=== PATIENT | male | born 1990 | race Caucasian/White ===

== ENCOUNTER 2017-12-07 15:22 | Emergency (ER) | payer SELFPAY ==
[2017-12-07 15:23] VITALS: BP 137/73; PULSE 91; RESP 16; TEMP 37.2; O2SAT 98; BMI 24.3
--- NOTE | 2017-12-07 17:27 | NURSING ---
due to past hx of Iv drug use patient request no opioids and to have opioids added to allergy list.
[2017-12-07 17:30] VITALS: BP 113/90; PULSE 72; RESP 14; O2SAT 97
--- NOTE | 2017-12-07 17:48 | CT_ITS ---
STUDY: CT ABDOMEN AND PELVIS WITHOUT CONTRAST REASON FOR EXAM: Male, 27 years old. Bilateral flank pain. RADIATION DOSAGE (If Supplied By Facility): CTDIvol = ( 6.08 ) mGy, DLP = ( 291.86 ) mGycm TECHNIQUE: Transaxial images were obtained from the dome of the diaphragm to the symphysis pubis without oral contrast, and without intravenous contrast. Sagittal and coronal images were reconstructed. Individualized dose optimization techniques were used for this CT. COMPARISON: None. FINDINGS: The visualized lung bases are unremarkable. The visualized portions of the heart are within normal limits. Please note the lack of intravenous contrast limits evaluation of solid visceral organs. Normal liver. Normal gallbladder and extrahepatic biliary system. Normal spleen. Normal pancreas. Normal bilateral adrenal glands. Normal right kidney. Normal left kidney. Normal visualized stomach. Normal small intestine. There are diverticula throughout the sigmoid colon. The appendix is visualized and appears normal. Normal abdominal aorta. Normal inferior vena cava. Normal retroperitoneum. Normal urinary bladder. Normal abdominal wall. There is a left posterolateral ninth rib fracture associated with bony bridging suggesting healing. CT/Abdomen/Pelvis without Cont IMPRESSION: Healing left ninth posterolateral rib fracture. Colonic diverticulosis. Electronically Signed: Tiffanie Corbett MD at 18:57 EDT Tel , Service support ,
[2017-12-07 18:04] LABS: Absolute Lymphocyte Count 1.33 X10^3/ul (0.83-4.51); Absolute Neutrophil Count 5.7 X10^3/uL (2.0-7.7); Basophil# 0.02 X10^3/uL; Basophil% 0.2 % (0-1); Eosinophil# 0.08 X10^3/uL; Hematocrit 42.1 % (40-54); Hemoglobin 14.1 g/dl (13.0-16.5); Lymphocyte # 1.33 X10^3/ul (4.0); Lymphocyte % 16.1 % (19-41); Mean Corp Hgb Conc 33.5 g/gl (32-36); Mean Corpuscular Hgb 29.4 pg (27.0-32.0); Mean Corpuscular Volume 87.7 fL (80-94); Mean Platelet Vol. 12.6 fl (6.2-12.0); Monocyte# 1.11 X10^3/uL; Monocyte% 13.4 % (0-10); Neutrophil # 5.71 X10^3/uL (2.7-7.7); Neutrophil % 69.1 % (47-70); POSITIVE COUNT NO; POSITIVE DIFFERENTIAL NO; POSITIVE MORPHOLOGY NO; Platelet Count 128 K/mm3 (150-450); RBC Distribution Width CV 13.5 % (11.6-14.6); RBC Distribution Width SD 43.1 fl (35.1-43.9); White Blood Count 8.3 K/mm3 (4.4-11.0)
[2017-12-07] MEDS: 0.9% Normal Saline 1,000 ML 1000 ML IV (18:18)
[2017-12-07 18:19] LABS: Anion Gap 9 (5-15); BUN 11 mg/dL (7-18); BUN/Creat Ratio 13.8 RATIO (10-20); Calcium,Total 9.5 mg/dL (8.5-10.1); Chloride 99 mmol/L (98-107); EST Glomerular Filtration Rate 122 mL/min (>60); Est Glom Filt Rate - Afr Amer 147 mL/min (>60); Estimated Creatinine Clearance 136.24 ml/min; Glucose 95 mg/dL (74-106); Potassium 4.2 mmol/L (3.5-5.1); Sodium Level 136 mmol/L (136-145)
[2017-12-07] MEDS: Ketorolac 30 MG/ML Syringe IV (18:39)
[2017-12-07 19:04] VITALS: PULSE 63; RESP 14; O2SAT 98
[2017-12-07 19:49] LABS: Bacteria 0 SEEN /hpf (None Seen); Red Blood Cells-Urine 0 SEEN /hpf (0-5); Squamous Epithelial Cells - UA 0 SEEN /hpf (0-5)
[2017-12-07 19:52] LABS: Color, Urine Amber (Yellow); Glucose, Dipstick Normal (Normal); Leukocyte Esterase-Dipstick 25 /ul (Negative); Nitrite-Dipstick Positive (Negative); Occult Blood-Urine Negative /ul (Negative); Protein-Dipstick 30 mg/dl (Negative); Specific Gravity, Urine 1.025 (1.002-1.030); Urine Clarity Sl. Cloudy (Clear); Urine Urobilinogen 4 mg/dl (Normal)
[2017-12-07 20:00] LABS: Ketone-Dipstick 150 mg/dl (Negative); Urine Bilirubin Dipstick 1 mg/dL (Negative)
--- NOTE | 2017-12-07 20:03 | ED.RN ---
lab called with critical lab results. urine ketones 150. Dr. Mathew made aware no new orders at this time
[2017-12-07 20:05] LABS: Mucous, Urine 4+ /hpf (<or=2+); White Blood Cells 0-5 SEEN /hpf (0-5)
--- NOTE | 2017-12-07 21:01 | ED.VISSUMM ---
- ER Visit Summary Date of Service: 12/07/17 Chief Complaint: Flank pain History of Present Illness: The patient is a 27 M with bilateral flank pain that started today. He states he had some blood in his urine this morning. He states he really has not urinated the rest of the day today. Patient denies history of kidney stones. He denies dysuria. Physical Examination: Vital signs unremarkable. Patient sitting upright in bed no acute distress. Heart is regular rate and rhythm. Lung sounds are clear. Abdomen is soft with mild diffuse tenderness. There is no guarding or rebound. Active bowel sounds noted throughout. Back exam reveals no CVA tenderness. Test Results: CBC is significant only for platelet count of 120,000. Chemistry studies normal. Urinalysis is positive for nitrites with 0-5 whites and 0-[address] flank shows healing left ninth rib fracture. Colonic diverticulosis is noted. Emergency Department Course and Treatment: Patient was given Toradol, Zofran, and IV fluids here. On repeat evaluation pain is improved. Test results were discussed with him. Urine will be sent for culture but because he is not having symptoms we will not treat at this time. I will also add gonorrhea chlamydia testing to the urine. Patient will be given Toradol at home for pain. Treatment Plan: [] Disposition: Discharge Impression: Abdominal pain, uncertain etiology This note was generated with [employer] dictation software. It may contain incorrect words, spelling, and punctuation that were not noted in review of the chart prior to signing ED Disposition - Plan for ED Patient: Chief Complaint: Flank Pain Referrals: Care Physician,No Primary [Primary Care Provider] -
[2017-12-07 21:02] VITALS: PULSE 68; RESP 16; O2SAT 98
--- NOTE | 2017-12-07 21:04 | ED.DEP ---
ED Disposition - Plan for ED Patient: Disposition: Home or Assisted Living Chief Complaint: Flank Pain Instructions: ED Abdominal Pain Unkn Cause Male Prescriptions: Ketorolac [Toradol] 10 mg PO Q6H PRN #14 tablet PRN Reason: Pain Referrals: Carlos Garcia MD [STAFF PHYSICIAN] - As Needed
[2017-12-07 21:16] VITALS: PULSE 91; RESP 16; O2SAT 98
[2017-12-07 23:27] LABS: Chlamydia Trachomatis by PCR Negative (Negative); Neisserai gonorrhoeae by PCR Negative (Negative); Probe Check PASS; Sample Adequacy Control PASS; Specimen Processing Control PASS
== END 2017-12-07 21:17 | disposition home or self-care (01) ==
PROVIDERS: Emergency Provider Emergency Medicine
DX: R10.9 Unspecified abdominal pain (principal); R31.9 Hematuria, unspecified; K57.30 Diverticulosis of large intestine without perforation or abscess without bleeding; Z86.19 Personal history of other infectious and parasitic diseases; Z72.0 Tobacco use
CPT/HCPCS: 74176; 80048; 81001; 85025; 87086; 87088; 87491; 87591; 96361; 96374; 99285; J7030; A4216

== ENCOUNTER 2018-10-26 19:28 | Emergency (ER) | payer MEDICAID, SELFPAY ==
[2018-10-26 19:30] VITALS: BP 140/80; PULSE 107; RESP 15; TEMP 37.1; O2SAT 98; BMI 23.0
--- NOTE | 2018-10-26 19:43 | ED.VISSUMM ---
- ER Visit Summary Date of Service: 10/26/18 Chief Complaint: Scalp abscess, methamphetamine abuse History of Present Illness: The patient is a 28 M who is here because he has an abscess on his scalp. He states that he shaved his head with a razor 2 days ago when he had a bump behind his ear. It is not red. He denies any drainage or fevers. He is also inquiring about detox. He states he relapsed on methamphetamine 2 days ago. He has used twice this week. He is a former heroin addict and did detox 2 years ago with [facility] here. Physical Examination: Vital signs reviewed. Head exam reveals an area of cellulitis of the left lower scalp. There is no fluctuance. No abscess is seen. The rest of his exam is unremarkable Test Results: None performed Emergency Department Course and Treatment: The patient looks very comfortable and I do not feel he needs inpatient detox at this point. I will give him follow-up information with [facility] and with [facility]. I will give him Bactrim for this area of cellulitis on the scalp. He will keep this area clean and dry. I do not feel labs are necessary as his vital signs are unremarkable. I will give him a PCP to follow-up with Treatment Plan: [] Disposition: Discharge Impression: Scalp cellulitis, methamphetamine abuse This note was generated with [employer] dictation software. It may contain incorrect words, spelling, and punctuation that were not noted in review of the chart prior to signing ED Disposition - Plan for ED Patient: Referrals: Care Physician,No Primary [Primary Care Provider] -
--- NOTE | 2018-10-26 19:45 | ED.DEP ---
ED Disposition - Plan for ED Patient: Disposition: Home or Assisted Living Instructions: Cellulitis Prescriptions: Smz/Tmp Ds [Bactrim Ds] 1 tab PO BID #14 tab Prescription Printed Referrals: Care Physician,No Primary [Primary Care Provider] - Oneil Persaud DO [STAFF PHYSICIAN] -
[2018-10-26] MEDS: Smz/Tmp Ds Tablet 1 TABLET PO (19:51)
== END 2018-10-26 20:06 | disposition home or self-care (01) ==
LOC: ED 19:59
PROVIDERS: Emergency Provider Emergency Medicine
DX: L03.811 Cellulitis of head [any part, except face] (principal); F15.10 Other stimulant abuse, uncomplicated; Z86.19 Personal history of other infectious and parasitic diseases; Z87.898 Personal history of other specified conditions
CPT/HCPCS: 99283

== ENCOUNTER 2018-12-31 22:16 | Emergency (ER) | payer MEDICAID, SELFPAY ==
[2018-12-31 22:17] VITALS: BP 129/89; PULSE 89; RESP 14; TEMP 36.7; O2SAT 98; BMI 19.7
--- NOTE | 2018-12-31 22:55 | ED.DCSUM_ITS ---
- ER Visit Summary Date of Service: 12/31/18 Chief Complaint: Blood shot eyes History of Present Illness: The patient is a 28 M past medical history of drug abuse. 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 And he thought he got into may be some poison daniela. He was concerned he was in get a reaction so he went inside when he was done and washed his face off with Cyn soap. He believes he may got some of his eyes. And has been rubbing his eyes since that time. Started yesterday. He denies any trauma to his face or eyes. Denies any headache. He is on no blood thinners. He does not wear glasses or contacts. Physical Examination: Young male no acute distress. Vital signs are stable and afebrile. HEENT exam is mild swelling to both upper and lower lids bilaterally. He has subconjunctival hemorrhages to both eyes. They are watering. There is no purulent discharge. There is no orbital cellulitis or proptosis. Extraocular motions are intact. There is no preauricular lymphadenopathy. There is no facial swelling otherwise. Lungs are clear. Heart is regular rhythm no murmur. Abdomen is soft. Patient is moving all 4 extremities. Neurologically is awake and alert with no focal motor deficits. Test Results: None Emergency Department Course and Treatment: Slit-lamp examination will be performed with tetracaine and fluoroscein applied to both eyes. Patient had bilateral subconjunctival hemorrhages. His corneas appeared to be somewhat hazy. And he had fluoroscein uptake consistent with bilateral corneal abrasions. I again question the patient and he told me the only thing he got in contact with his eyes was done so. He then rubbed him vigorously for the last 24 hours. He denies any contact lens use or glasses or any prior eye surgery. He denies any trauma otherwise. Nurse will irrigate his eyes out with saline. He will be given tetracaine for 1 day for pain. Prescription for bacitracin ointment. Treatment Plan: Sunglasses to prevent glare. Bacitracin ophthalmic ointment. Follow-up with senior sales administrator on Wednesday. Disposition: Discharge Impression: Subconjunctival hemorrhages bilaterally. Bilateral chemical conjunctivitis Bilateral corneal abrasions self-inflicted History of drug abuse This note was generated with Dragon dictation software. It may contain incorrect words, spelling, and punctuation that were not noted in review of the chart prior to signing ED Disposition - Plan for ED Patient: Referrals: Care Physician,No Primary [NON-STAFF] -
[2018-12-31] MEDS: Tetracaine 0.5% Ophthalmic Bottle 1 DRP EACH EYE (23:27)
[2018-12-31] MEDS: Fluorescein 1 MG STRIP 1 STRIP EACH EYE (23:27)
--- NOTE | 2018-12-31 23:29 | ED.DEP ---
ED Disposition - Plan for ED Patient: Disposition: Home or Assisted Living Instructions: Conjunctivitis Caused by Irritation, ED Corneal Abrasion Prescriptions: Bacitracin Opthalmic 1 applic EACH EYE Q4H PRN PRN 5 Days #1 opth.tube PRN Reason: conjunctivitis Prescription Printed Referrals: Mateusz Perdomo MD [STAFF PHYSICIAN] - As soon as possible Additional Instructions: Follow-up with the eye doctors office on Wednesday they will see you in their office on that day. You need to call make an appointment. Call them first thing Wednesday morning. Use the tetracaine eyedrops for pain relief for the next 24 hours. You cannot use them more than 1 day because they retard healing. Throw them away on Wednesday night. Motrin and tylenol for pain. Sun glasses to prevent glare Eye ointment bacitracin to each eye 4 times a day till gone.
== END 2018-12-31 23:50 | disposition home or self-care (01) ==
PROVIDERS: Emergency Provider Emergency Medicine; Family Provider Family Medicine; PCP Family Medicine
DX: H11.33 Conjunctival hemorrhage, bilateral (principal); H10.213 Acute toxic conjunctivitis, bilateral; S05.02XA Injury of conjunctiva and corneal abrasion without foreign body, left eye, initial encounter; S05.01XA Injury of conjunctiva and corneal abrasion without foreign body, right eye, initial encounter; X58.XXXA Exposure to other specified factors, initial encounter; Y93.9 Activity, unspecified; Y92.9 Unspecified place or not applicable; F19.10 Other psychoactive substance abuse, uncomplicated; Z72.0 Tobacco use
CPT/HCPCS: 99284; J7030

== ENCOUNTER 2019-01-06 14:43 | Emergency (ER) | payer MEDICAID, SELFPAY ==
[2019-01-06] VITALS (7 sets, daily range): BP systolic 106–146; BP diastolic 67–88; PULSE 88–98; RESP 12–20; TEMP 36.6; O2SAT 82–100; BMI 19.8
--- NOTE | 2019-01-06 15:00 | ED.VIS.GEN ---
History of Present Illness Chief Complaint: Overdose Informant: Patient Onset: Today Context: Sudden Onset Timing: Continuous Current Severity: Moderate Maximum Severity: Severe Narrative: The patient presents to the emergency department after accidental overdose. Patient states that he snorted heroin today. He was acting erratically and was more lethargic. Squad was called. On squad arrival, the patient was placed on nasal cannula. He was listless, but would respond appropriately. He answers questions. He denies being suicidal homicidal. The patient states he was recently incarcerated and has been out of group home for about a month. He states that he uses heroin daily. He has been through detox before. He denies any other current symptoms. Prior similar symptoms: Yes Recent Illness/Hospitalization: No Past Medical History - Allergies and Home Meds Allergies/Adverse Reactions: Allergies No Known Allergies Allergy (Verified 01/06/19 14:49) Primary Care Physician: Brady Atwood MD [Primary Care Provider] - Prior records reviewed: Yes Past Medical History: - - Drug abuse Surgical History: no surgical history Smoking Status: Current every day smoker - Family History Maternal Family History: Reports: No pertinent history Paternal Family History: Reports: No pertinent history Review of Systems General: Denies: Chills, Fever, Sweats Eyes: Denies: Visual changes - bilaterally, Diplopia ENT: Denies: Rhinorrhea, Sore throat Cardiovascular: Denies: Chest pain, Palpitations Respiratory: Denies: Dyspnea, Cough, Dyspnea on exertion Gastrointestinal: Denies: Abdominal pain, Nausea, Vomiting, Diarrhea, Melena, Hematochezia Genitourinary: Denies: Dysuria, Hematuria, Frequency Musculoskeletal: Denies: Back pain, Extremity Pain Skin: Denies: Rash, Wounds Neurological: Denies: Headache, Weakness, Numbness Physical Exam Vital Signs/Narrative: Vital Signs Temp Pulse Resp BP Pulse Ox 01/06/19 14:49 12 97 01/06/19 14:43 97.8 F 98 16 121/77 H 82 Inital Vital Signs reviewed: Yes General: Well nourished, Well developed, No Acute Distress Head: Normocephalic, Atraumatic Eyes: Perrl, EOMI ENT: Moist mucous membranes, No rhinorrhea Neck: Supple, Nontender Cardiovascular: Regular rate, Regular rhythm, No murmurs Respiratory: No distress, CTA bilaterally, Chest nontender Abdomen: Soft, Nontender, Nondistended, Normal bowel sounds Back: Nontender, Normal Inspection Extremities: Nontender, No edema Skin: Normal color, No rash Neurological: Alert, Oriented x3, Cranial nerves II-XII grossly intact, Normal Strength, Normal Sensation Psychological: Normal affect, Normal Mood Diagnostic/Tx/Re-eval - Medical Decision Making The patient presents after accidental opiate overdose. He is awake. Answers questions appropriately. He did not receive any Narcan. The patient was interested in outpatient detox referrals. I did ask social work to see the patient. We were attempting to get the patient's detox referral, but he stated that he did not want to stay anymore. He is not requiring any supplemental oxygen. He was given outpatient resources for follow-up. He will be discharged home. Impression Accidental opioid overdose ED Disposition - Plan for ED Patient: Disposition: Home or Assisted Living Instructions: OVERDOSE, Opiate Referrals: Brady Atwood MD [Primary Care Provider] -
[2019-01-06 15:50] LABS: Absolute Lymphocyte Count 1.64 X10^3/uL (0.83-4.51); Absolute Neutrophil Count 7.8 X10^3/uL (2.0-7.7); Basophil# 0.07 X10^3/uL; Basophil% 0.7 % (0-1); Eosinophil# 0.16 X10^3/uL; Eosinophils% 1.5 % (0-5); Hemoglobin 14.4 g/dL (13.0-16.5); Lymphocyte # 1.64 X10^3/ul (4.0); Lymphocyte % 15.4 % (19-41); Mean Corpuscular Hgb 28.5 pg (27.0-32.0); Mean Corpuscular Volume 88.9 fL (80-94); Mean Platelet Vol. 10.7 fl (6.2-12.0); Monocyte# 0.94 X10^3/uL; Monocyte% 8.8 % (0-10); NRBC Flagged by Analyzer 0 % (0-5); Neutrophil # 7.79 X10^3/uL (2.7-7.7); Neutrophil % 73.1 % (47-70); Platelet Count 392 K/mm3 (150-450); RBC Distribution Width CV 13.9 % (11.6-14.6); RBC Distribution Width SD 44.9 fl (35.1-43.9); Red Blood Count 5.06 M/mm3 (4.6-6.2); White Blood Count 10.7 K/mm3 (4.4-11.0)
[2019-01-06 16:03] LABS: ALB/GLOB Ratio 1.1 RATIO (0.9-2.4); AST(SGOT) 106 U/L (15-37); Alanine Aminotransfer ALT/SGPT 197 U/L (16-61); Alkaline Phosphatase 105 U/L (45-117); Anion Gap 8 (5-15); BUN 8 mg/dL (7-18); BUN/Creat Ratio 9.1 RATIO (10-20); Calcium,Total 8.7 mg/dL (8.5-10.1); Chloride 104 mmol/L (98-107); Creatinine, Serum 0.88 mg/dL (0.70-1.30); EST Glomerular Filtration Rate 108 mL/min (>60); Est Glom Filt Rate - Afr Amer 131 mL/min (>60); Estimated Creatinine Clearance 105.56 ml/min; Globulin 3.5 g/dL (2.2-4.2); Glucose 117 mg/dL (74-106); Potassium 4.3 mmol/L (3.5-5.1); Protein, Total 7.5 g/dL (6.4-8.2); Sodium Level 141 mmol/L (136-145)
--- NOTE | 2019-01-06 16:30 | CM.ED ---
SOCIAL WORK ASSESSMENT INFORMANT: DR. MCCALL REASON FOR REFERRAL: SUBSTANCE ABUSE/PATIENT WANTING DETOX CHIEF COMPLIANT: PATIENT BROUGHT IN BY EMS D/T ACTING ERRATICALLY. PATIENT ADMITTED TO SNORTING HEROIN WITH [facility] OR [facility]. PATIENT STATES HAD BEEN ON VIVITROL BACK IN SEPTEMBER AND RELAPSED. PATIENT STATES WAS TRYING TO QUIT USING ON OWN AND HAD CALLED AROUND TO GET IN SOMEWHERE FOR DETOX. PATIENT REPORTS HAD NOT USED FOR 3 DAYS. PATIENT STATES TODAY WAS NOT FEELING BETTER AND WITHDRAWAL SYMPTOMS BECAME WORSE. PATIENT STATES HE OBTAINED HEROIN AND USED BY SNORTING AROUND 1PM TODAY. LIVING SITUATION: PATIENT STATES IS CURRENTLY HOMELESS. LEGAL ISSUES: PATIENT DENIES ANY LEGAL ISSUES CURRENTLY. EMPLOYMENT STATUS: UNEMPLOYED MENTAL HEALTH TREATMENT/HISTORY: PATIENT DENIES ANY MENTAL HEALTH HISTORY. PATIENT DENIES ANY SUICIDAL OR HOMICIDAL IDEATIONS. SUBSTANCE ABUSE HISTORY: PATIENT REPORTS HAS BEEN USING HEROIN SINCE THE AGE OF 16 OFF AND ON. PATIENT STATES USES ABOUT 1/2 GRAM DAILY, OR MUCH I CAN AFFORD. LAST USE WAS AT 1PM TODAY AFTER ABSTAINING FOR 3 DAYS. ASSESSMENT: MET WITH PATIENT IN ROOM. INTRODUCED ROLE AND REASON FOR REFERRAL. PATIENT STATES IS WANTING TREATMENT. PATIENT REPORTS WAS ON VIVITROL BACK IN SEPTEMBER WHEN HE WAS IN RETIREMENT. ONCE RELEASED HAD ISSUES WITH GETTING BACK ON VIVITROL. PATIENT HOPING TO BE PLACED INPATIENT FOR DETOX. THIS WORKER TO ASSIST WITH PLACEMENT FOR DETOX. STAFF AND DR. MCCALL UPDATED ON PLAN. INTERVENTIONS: SOCIAL SERVICE ASSESSMENT REFERRAL FOR INPATIENT DETOX BRIAN MURPHY MSW, SYSTEMS OPERATOR.
[2019-01-06 17:15] LABS: Alcohol, Blood (Medical)-Serum < 3.0 mg/dL
--- NOTE | 2019-01-06 17:41 | CM.ED ---
SOCIAL WORK MET WITH PATIENT IN ROOM. PATIENT REPORTS CALLED [facility] AND THEY REPORTED WILL HAVE BED FOR PATIENT TOMORROW. PATIENT STATES HAS EYE APPOINTMENT TOMORROW MORNING AND PLANS TO GO TO [place] AFTER APPOINTMENT. PATIENT THANKED THIS WORKER FOR ASSISTANCE. NURSING UPDATED. BRIAN MURPHY, CURTAIN [employer]ER BLINDSTITCH, AUTOMATIC QUILLING MACHINE OPERATOR.
== END 2019-01-06 17:49 | disposition home or self-care (01) ==
PROVIDERS: Emergency Provider Emergency Medicine; Family Provider Family Medicine; PCP Family Medicine
DX: T40.2X1A Poisoning by other opioids, accidental (unintentional), initial encounter (principal); Y92.9 Unspecified place or not applicable; F17.200 Nicotine dependence, unspecified, uncomplicated
CPT/HCPCS: 36415; 80053; 80320; 85025; 99285; A4216; G0480

== ENCOUNTER 2019-01-14 19:26 | Emergency (ER) | payer MEDICAID, SELFPAY ==
[2019-01-06 14:43] VITALS: BMI 19.8
[2019-01-14 19:27] VITALS: BP 167/148; PULSE 111; RESP 14; TEMP 36.4; O2SAT 96; BMI 19.3
--- NOTE | 2019-01-14 20:39 | ED.RN ---
PT RESTLESS, CONTORTING ALL EXTREMITIES, SINGING, RAMBLING NON-SENSICAL SPEECH. PT COOPERATIVE AT THIS TIME, REQUIRES FREQUENT REDIRECTION.
[2019-01-14] MEDS: LORazepam 2 MG/ML Syringe IM (20:56)
[2019-01-14 20:58] VITALS: BP 157/87; PULSE 112; RESP 20; O2SAT 98
[2019-01-14 21:02] LABS: Absolute Lymphocyte Count 2.71 X10^3/uL (0.83-4.51); Absolute Neutrophil Count 5.8 X10^3/uL (2.0-7.7); Basophil# 0.12 X10^3/uL; Basophil% 1.2 % (0-1); Eosinophil# 0.18 X10^3/uL; Eosinophils% 1.8 % (0-5); Hematocrit 43.3 % (40-54); Hemoglobin 14.3 g/dL (13.0-16.5); Lymphocyte # 2.71 X10^3/ul (4.0); Lymphocyte % 26.6 % (19-41); Mean Corpuscular Hgb 28.8 pg (27.0-32.0); Mean Corpuscular Volume 87.3 fL (80-94); Mean Platelet Vol. 10.2 fl (6.2-12.0); Monocyte# 1.37 X10^3/uL; Monocyte% 13.4 % (0-10); NRBC Flagged by Analyzer 0 % (0-5); Neutrophil # 5.79 X10^3/uL (2.7-7.7); Neutrophil % 56.7 % (47-70); Platelet Count 405 K/mm3 (150-450); RBC Distribution Width CV 13.7 % (11.6-14.6); RBC Distribution Width SD 43.5 fl (35.1-43.9); Red Blood Count 4.96 M/mm3 (4.6-6.2); White Blood Count 10.2 K/mm3 (4.4-11.0)
[2019-01-14 21:14] LABS: Anion Gap 6 (5-15); BUN 16 mg/dL (7-18); BUN/Creat Ratio 16.3 RATIO (10-20); Calcium,Total 9.3 mg/dL (8.5-10.1); Chloride 106 mmol/L (98-107); Creatinine, Serum 0.98 mg/dL (0.70-1.30); EST Glomerular Filtration Rate 95 mL/min (>60); Est Glom Filt Rate - Afr Amer 115 mL/min (>60); Estimated Creatinine Clearance 92.29 ml/min; Glucose 89 mg/dL (74-106); Potassium 4.1 mmol/L (3.5-5.1); Sodium Level 142 mmol/L (136-145)
[2019-01-14 21:26] LABS: Alcohol, Blood (Medical)-Serum < 3.0 mg/dL
[2019-01-14] MEDS: Ziprasidone IM 20 MG/ML VIAL IM (21:57)
--- NOTE | 2019-01-14 22:00 | ED.RN ---
PT CONTINUES WITH ERRATIC, AGITATED BEHAVIOR. PT STATES MAN, I JUST CAN'T COME DOWN OFF THIS SHIT'. CONTINUES TO COOPERATE WITH CARE, ABLE TO REDIRECT BACK TO BED.
[2019-01-14 23:36] LABS: Amphetamine Urine VISTA POSITIVE (<1000 ng/mL); Barbiturate Urine VISTA NEGATIVE (< 200 ng/mL); Benzodiazepine Urine VISTA NEGATIVE (< 200 ng/mL); Cocaine Urine VISTA POSITIVE (< 300 ng/mL); Ecstacy Urine VISTA POSITIVE (< 500 ng/mL); Methadone Urine VISTA NEGATIVE (< 300 ng/mL); PCP Urine VISTA NEGATIVE (< 25 ng/mL); THC Urine VISTA NEGATIVE (< 50 ng/mL); Vista UDS pH Range 6
[2019-01-14 23:38] VITALS: BP 98/66; PULSE 100; RESP 14; O2SAT 96
--- NOTE | 2019-01-14 23:59 | ED.DCSUM_ITS ---
- ER Visit Summary Date of Service: 01/14/19 Chief Complaint: Abnormal behavior History of Present Illness: The patient is a 28 M who presents with abnormal behavior that was noticed today. Patient was found by police acting abnormally. Patient was brought to the emergency department for further evaluation. Patient admits to using heroin and methamphetamine. Patient denies any suicidal or homicidal ideations. Patient is a poor historian. Patient denies any chest pain or shortness of breath. Patient denies any nausea or vomiting. Patient denies any fevers or chills. Physical Examination: Vital signs are stable except for slightly elevated blood pressure 167/148 and a mild tachycardia of 111. Patient is afebrile. Patient is in no acute distress. Patient is awake, alert, and answers questions appropriately however he does appear to have some external stimulation. Patient denies any suicidal or homicidal ideations. Cranial nerves II through XII are intact. There are no focal motor or sensory deficits noted. Skin is warm and dry. There is some superficial abrasions on his scalp but there is no active bleeding noted. Oral mucosa is pink and moist. Neck is supple. Trachea is midline. There is no JVD noted. Heart was regular rate and rhythm. Lungs are clear and equal bilaterally. Abdomen is soft and nontender. Test Results: CBC and basic metabolic profile within normal limits. Serum alcohol level was normal. Urine tox screen was positive for methamphetamines, amphetamines, and cocaine. Emergency Department Course and Treatment: Patient was given a dose of Ativan here. Patient was still agitated. Patient was given a dose of Geodon. Patient is resting comfortably on reevaluation. Patient was instructed to stop using methamphetamine and heroin. Patient does not want to help at this time for drug rehab. Patient will be observed in the emergency department until he is clinically sober. Patient was instructed to follow-up with his primary care physician in 5 to 7 days. Disposition: Discharge home Impression: Substance abuse This note was generated with [employer] dictation software. It may contain incorrect words, spelling, and punctuation that were not noted in review of the chart prior to signing ED Disposition - Plan for ED Patient: Disposition: Home or Assisted Living Diagnosis: Substance abuse Instructions: Drug Abuse Referrals: Brady Atwood MD [Primary Care Provider] - 5-7 Days
[2019-01-15 00:40] VITALS: BP 101/74; PULSE 76; RESP 13; O2SAT 100
[2019-01-15 01:11] VITALS: BP 97/70; PULSE 69; RESP 14; O2SAT 100
--- NOTE | 2019-01-15 01:12 | ED.RN ---
PATIENT IS SLEEPING SOUNDLY CURRENTLY. VITALS ARE STABLE.
[2019-01-15 02:11] VITALS: BP 147/93; PULSE 78; RESP 20; O2SAT 100
--- NOTE | 2019-01-15 02:12 | ED.RN ---
PATIENT'S DAD IS UNABLE TO COME AND GET THE PATIENT, BUT HE SAID HE COULD COME HOME IN A TAXI. PATIENT WAS GIVEN A SANDWICH AND A DRINK TO SEE IF HE COULD STAY AWAKE TO TAKE THE TAXI. HE IS ANSWERING APPROPRIATELY, EATING AND GETTING HIMSELF DRESSED TO GO HOME.
--- NOTE | 2019-01-15 02:25 | ED.RN ---
THIS NURSE WALKED PATIENT OUT TO THE CAB TO GO HOME.
== END 2019-01-15 02:25 | disposition home or self-care (01) ==
PROVIDERS: Emergency Medicine; Emergency Provider Emergency Medicine; Family Provider Family Medicine; PCP Family Medicine
DX: F15.10 Other stimulant abuse, uncomplicated (principal); F14.10 Cocaine abuse, uncomplicated; F11.90 Opioid use, unspecified, uncomplicated; S00.01XA Abrasion of scalp, initial encounter; X58.XXXA Exposure to other specified factors, initial encounter; Y93.9 Activity, unspecified; Y92.9 Unspecified place or not applicable; M54.2 Cervicalgia; M54.9 Dorsalgia, unspecified; Z86.19 Personal history of other infectious and parasitic diseases; F17.200 Nicotine dependence, unspecified, uncomplicated
CPT/HCPCS: 36415; 80048; 80307; 80320; 85025; 96372; 99284; G0480; J3486

== ENCOUNTER 2019-03-01 11:52 | Emergency (ER) | payer MEDICAID, SELFPAY ==
[2019-03-01 11:52] VITALS: BP 129/82; PULSE 87; RESP 16; TEMP 36.6; O2SAT 99; BMI 22.1
[2019-03-01] MEDS: Fluorescein 1 MG STRIP 1 STRIP RIGHT EYE (12:07)
[2019-03-01] MEDS: Tetracaine 0.5% Ophthalmic Bottle 1 DRP RIGHT EYE (12:07)
--- NOTE | 2019-03-01 12:29 | ED.VISSUMM ---
- ER Visit Summary Date of Service: 03/01/19 Chief Complaint: Foreign body right eye History of Present Illness: The patient is a 28 M who got a foreign body in his right eye at work yesterday. Complains of pain and tearing. He had similar symptoms a week and a half ago and had foreign bodies removed at an eye care center. Physical Examination: Patient has 2 foreign bodies, 1 of them is at 3:00 and the other one is at 7:00. There also appears to be a central corneal abrasion. He has conjunctival injection, tearing. Extraocular motion normal. Pupils normal. Skin normal. Test Results: None indicated Emergency Department Course and Treatment: Visual acuity performed. Tetracaine applied. Fluorescein used. Patient was discussed with ophthalmology. They would like to see him in the clinic today at 215. He was given a work note. Treatment Plan: As above Disposition: Discharge Impression: Right eye foreign bodies This note was generated with [employer] dictation software. It may contain incorrect words, spelling, and punctuation that were not noted in review of the chart prior to signing ED Disposition - Plan for ED Patient: Referrals: Brady Atwood MD [Primary Care Provider] -
--- NOTE | 2019-03-01 12:30 | ED.DEP ---
ED Disposition - Plan for ED Patient: Instructions: Foreign Object in the [place] Referrals: Mateusz Perdomo MD [STAFF PHYSICIAN] -
[2019-03-01 12:39] VITALS: BP 108/74; PULSE 62; RESP 15; O2SAT 99
== END 2019-03-01 12:40 | disposition home or self-care (01) ==
PROVIDERS: Emergency Provider Emergency Medicine; Family Provider Family Medicine; PCP Family Medicine
DX: T15.01XA Foreign body in cornea, right eye, initial encounter (principal); X58.XXXA Exposure to other specified factors, initial encounter; Y93.9 Activity, unspecified; Y92.9 Unspecified place or not applicable; Z72.0 Tobacco use
CPT/HCPCS: 99283

== ENCOUNTER 2020-07-01 01:40 | Emergency (ER) | payer MEDICAID, SELFPAY ==
[2020-07-01 01:48] VITALS: BP 133/104; PULSE 127; RESP 19; TEMP 37.6; O2SAT 96; BMI 26.0
--- NOTE | 2020-07-01 02:13 | ED.DCSUM_ITS ---
History of Present Illness Chief Complaint: Mental Health Informant: Patient, Activity Therapy Teacher Narrative: Patient has been staying at a hotel with his girlfriend, there was a verbal altercation earlier between the 2 of them because according to him, his girlfriend has bipolar disorder and she was having a bad day. He states that he understands this happens with her because of her bipolar, but he loves her and stands by her, but after she was brought here to the hospital and later discharged, he was also brought at the requirement of police who then called paramedics. They said he was having involuntary movements and they were concerned about potential drug use which the patient denies although he is admitted recovering heroin addict who is also used methamphetamine in the past, but nothing recently or tonight. He states that apparently the hotel is forcing him and his girlfriend to leave, and they were doing it through the police. He states he is feeling emotional lately, and he is very hurt by the fact that the police and paramedics seem to be treating him poorly because they think I am just a junky. He denies any recent drug use or recent illness, and states that he was upset and rather agitated because of the way he and his girlfriend were being treated. He goes on to say that they asked him to get on the cot and once he did, they strapped him to it even though he thought he was cooperating. He denies any suicidal ideation, homicidal ideation, hallucinations or de lusions. He states he has had hallucinations in the past when he did methamphetamine, and he states tonight the paramedics were making fun of him because of that event. - Past Medical History (1) Asthma Status: Chronic Past Medical History - Allergies and Home Meds Allergies/Adverse Reactions: Allergies No Known Allergies Allergy (Verified 01/06/19 14:49) Primary Care Physician: Counseling[facility]Center [GROUP OF PHYSICIANS] - As Needed Brady Atwood MD [Primary Care Provider] - As Needed Surgical History: no surgical history Lives: Homeless Smoking Status: Current every day smoker Drugs: - - Drug use in past see HPI - Family History Maternal Family History: Reports: No pertinent history Paternal Family History: Reports: No pertinent history Review of Systems General: Denies: Chills, Fever, Sweats Eyes: Denies: Visual changes - bilaterally, Diplopia ENT: Denies: Rhinorrhea, Sore throat Cardiovascular: Denies: Chest pain, Palpitations Respiratory: Denies: Dyspnea, Cough, Dyspnea on exertion Gastrointestinal: Denies: Abdominal pain, Nausea, Vomiting, Diarrhea, Melena, H ematochezia Genitourinary: Denies: Dysuria, Hematuria, Frequency Musculoskeletal: Denies: Back pain, Extremity Pain Skin: Denies: Rash, Wounds Neurological: Denies: Headache, Weakness, Numbness Psych: Reports: Depression, Anxiety. Denies: Suicidal thoughts, Suicidal ideations Physical Exam Vital Signs/Narrative: Vital Signs Temp Pulse Resp BP Pulse Ox 07/01/20 01:48 99.6 F H 127 H 19 H 133/104 H 96 Inital Vital Signs reviewed: Yes General: Well nourished, Well developed, No Acute Distress Head: Normocephalic, Atraumatic Eyes: Perrl, EOMI ENT: Moist mucous membranes, No rhinorrhea Neck: Supple, Nontender Cardiovascular: Regular rate, Regular rhythm, No murmurs Respiratory: No distress, CTA bilaterally, Chest nontender Abdomen: Soft, Nontender, Nondistended, Normal bowel sounds Back: Nontender, Normal Inspection Extremities: Nontender, No edema Skin: Normal color, No rash Neurological: Alert, Oriented x3, Cranial nerves II-XII grossly intact, Normal Strength, Normal Sensation, Normal Gait Psychological: Depressed, Tearful, - - Patient very insightful and not suicidal. No delusions or hallucinations objectively. A little fidgety, but no involuntary movements. Diagnostic/Tx/Re-eval - Medical Decision Making Repeat patient's heart rate is 112. I do not think he has any acute medical issue on my medical screening exam, nor do I think he needs any formal psychiatric evaluation tonight. He spent quite a while talking to me about how he feels like he was mistreated tonight and feels very poorly about the situation, he is regretful about the fact that he is admittedly a drug addict, and states that it is a daily struggle for him to continue to get over this lyndsey that is addiction, and he has continued to press on, telling me that he has been staying clear of drugs. Patient is discharged in stable condition. ED Disposition - Plan for ED Patient: Disposition: Home or Assisted Living Diagnosis: Acute reaction to situational stress Instructions: ED Depression Referrals: Brady Atwood MD [Primary Care Provider] - As Needed Counseling,Center [GROUP OF PHYSICIANS] - As Needed
[2020-07-01 02:30] VITALS: BP 139/85; PULSE 112; RESP 20; TEMP 36.4; O2SAT 95
[2020-07-01 03:02] VITALS: PULSE 98; RESP 18
== END 2020-07-01 03:04 | disposition home or self-care (01) ==
LOC: ED 02:22
PROVIDERS: Emergency Provider Emergency Medicine
DX: F43.0 Acute stress reaction (principal); F17.200 Nicotine dependence, unspecified, uncomplicated
CPT/HCPCS: 99282

== ENCOUNTER 2020-10-25 23:12 | Inpatient (IN) | payer MEDICAID, SELFPAY ==
[2020-10-25 23:12] VITALS: BP 120/76; PULSE 94; RESP 16; TEMP 36.1; O2SAT 97; BMI 23.6
--- NOTE | 2020-10-25 23:20 | EDS_ITS ---
HPI History of Present Illness Chief Complaint: Substance Abuse Narrative Narrative: Patient presenting for opioid detox. He states that he injects fentanyl. He states he also did black tar heroin several days ago. Patient also admits to methamphetamine use. Patient states currently his last use was yesterday and that he is having symptoms of restless legs and nausea. Patient denies any other significant medical history. He denies EtOH use. [facility] Medical History Hepatitis C Home Medications NK 10/26/20 [History Last Taken Unknown] Allergy/AdvReac Type Severity Reaction Status Date / Time No Known Allergies Allergy Verified 10/25/20 23:14 Family History Other Cancer Surgical History History of tonsillectomy Social History Smoking Status: Current every day smoker tobacco type: cigarettes ROS ROS ED Constitutional Constitutional ED: Denies chills, fever(s) or sweats Eyes Eyes: Denies blurry vision or diplopia ENT ENT ED: Denies rhinorrhea or sore throat Cardiovascular Cardiovascular: Denies chest pain or palpitations Respiratory/Chest Respiratory/Chest: Denies cough or dyspnea Gastrointestinal Gastrointestinal: Reports nausea; Denies abdominal pain, diarrhea or vomiting Genitourinary Genitourinary ED: Denies dysuria or urinary frequency Musculoskeletal Musculoskeletal: Denies arthralgias, myalgias or neck pain Integumentary Denies abscess or rash Neurologic Neurologic: Denies headache(s) or paresthesias EXAM Physical Exam Const Vital Signs: 10/25/20 23:12 10/26/20 01:56 Temperature 97 F L 97.9 F Temperature Source Temporal Temporal Pulse Rate 94 73 Respiratory Rate 16 15 Blood Pressure 120/76 120/78 Blood Pressure Mean 90 92 Pulse Ox 97 98 Oxygen Delivery Method Room Air Room Air Positive well nourished General Appearance ED: NAD HEENT Reports moist mucous membranes atraumatic Eyes EOMs intact bilaterally Resp normal respiratory effort and clear to auscultation bilaterally Cardio regular rate, regular rhythm and no murmurs Neuro oriented x3 Sensorium / Orientation: alert Psych mental status grossly normal and thought process normal Skin Lesions: no lesions Rashes: no rashes MDM MDM MDM Narrative Medical decision making narrative: Patient presenting for fentanyl detox. Patient's lab work-up today is unremarkable. Ethanol is negative. Urine tox screen is positive for amphetamine but negative for opiates. Since patient is on synthetic fentanyl it likely will not show up in a urine. Patient discussed with hospitalist who accepts admission for detox. Impression: 1. Methamphetamine abuse 2. Fentanyl abuse Lab Data Labs: Laboratory Results - last 24 hr 10/25/20 10/25/20 10/25/20 23:30 23:30 23:30 WBC 7.5 RBC 4.65 Hgb 13.0 Hct 40.2 MCV 86.5 MCH 28.0 MCHC 32.3 RDW Std Deviation 42.8 RDW Coeff of Toyin 13.6 Plt Count 391 MPV 10.2 Immature Gran % (Auto) 0.400 Neut % (Auto) 62.9 Lymph % (Auto) 20.3 [place] % (Auto) 11.7 H Eos % (Auto) 3.9 Baso % (Auto) 0.8 Absolute Neuts (auto) 4.7 Absolute Lymphs (auto) 1.53 Nucleated RBC % 0 Sodium 139 Potassium 3.6 Chloride 104 Carbon Dioxide 30.0 Anion Gap 5 BUN 8 Creatinine 0.80 Estim Creat Clear Calc 132.56 Est GFR (MDRD) Af Amer 144 Est GFR (MDRD) Non-Af 119 BUN/Creatinine Ratio 10.0 Glucose 135 H Calcium 8.6 Total Bilirubin 0.50 AST 58 H ALT 71 H Alkaline Phosphatase 108 Total Protein 6.8 Albumin 3.2 Globulin 3.6 Albumin/Globulin Ratio 0.9 Urine Opiates Screen Urine Methadone Screen Ur Barbiturates Screen Ur Phencyclidine Scrn Ur Amphetamines Screen U Methamphetamin-MDMA U Benzodiazepines Scrn Urine Cocaine Screen U Cannabinoids Screen Ur Drug Screen Comment Ethyl Alcohol < 3.0 10/26/20 00:14 WBC RBC Hgb Hct MCV MCH MCHC RDW Std Deviation RDW Coeff of Toyin Plt Count MPV Immature Gran % (Auto) Neut % (Auto) Lymph % (Auto) [place] % (Auto) Eos % (Auto) Baso % (Auto) Absolute Neuts (auto) Absolute Lymphs (auto) Nucleated RBC % Sodium Potassium Chloride Carbon Dioxide Anion Gap BUN Creatinine Estim Creat Clear Calc Est GFR (MDRD) Af Amer Est GFR (MDRD) Non-Af BUN/Creatinine Ratio Glucose Calcium Total Bilirubin AST ALT Alkaline Phosphatase Total Protein Albumin Globulin Albumin/Globulin Ratio Urine Opiates Screen NEGATIVE Urine Methadone Screen NEGATIVE Ur Barbiturates Screen NEGATIVE Ur Phencyclidine Scrn NEGATIVE Ur Amphetamines Screen POSITIVE H U Methamphetamin-MDMA POSITIVE H U Benzodiazepines Scrn NEGATIVE Urine Cocaine Screen NEGATIVE U Cannabinoids Screen NEGATIVE Ur Drug Screen Comment Ethyl Alcohol Discharge Plan Triage Chief Complaint: Substance Abuse ED Provider: Trenton Sanchez
[2020-10-25 23:38] LABS: Absolute Lymphocyte Count 1.53 X10^3/uL (0.83-4.51); Absolute Neutrophil Count 4.7 X10^3/uL (2.0-7.7); Basophil# 0.06 X10^3/uL; Basophil% 0.8 % (0-1); Eosinophil# 0.29 X10^3/uL; Eosinophils% 3.9 % (0-5); Hematocrit 40.2 % (40-54); Lymphocyte # 1.53 X10^3/ul (0.83-4.51); Lymphocyte % 20.3 % (19-41); Mean Corp Hgb Conc 32.3 g/dL (32-36); Mean Corpuscular Volume 86.5 fL (80-94); Mean Platelet Vol. 10.2 fl (6.2-12.0); Monocyte# 0.88 X10^3/uL; Monocyte% 11.7 % (0-10); NRBC Flagged by Analyzer 0 % (0-5); Neutrophil # 4.73 X10^3/uL (2.7-7.7); Neutrophil % 62.9 % (47-70); Platelet Count 391 K/mm3 (150-450); RBC Distribution Width CV 13.6 % (11.6-14.6); RBC Distribution Width SD 42.8 fl (35.1-43.9); Red Blood Count 4.65 M/mm3 (4.6-6.2); White Blood Count 7.5 K/mm3 (4.4-11.0)
[2020-10-25 23:56] LABS: ALB/GLOB Ratio 0.9 RATIO (0.9-2.4); AST(SGOT) 58 U/L (15-37); Alanine Aminotransfer ALT/SGPT 71 U/L (16-61); Albumin, Serum 3.2 g/dL (3.2-5.0); Alcohol, Blood (Medical)-Serum < 3.0 mg/dL; Alkaline Phosphatase 108 U/L (45-117); Anion Gap 5 (5-15); BUN 8 mg/dL (7-18); Calcium,Total 8.6 mg/dL (8.5-10.1); Chloride 104 mmol/L (98-107); EST Glomerular Filtration Rate 119 mL/min (>60); Est Glom Filt Rate - Afr Amer 144 mL/min (>60); Estimated Creatinine Clearance 132.56 ml/min; Globulin 3.6 g/dL (2.2-4.2); Glucose 135 mg/dL (74-106); Potassium 3.6 mmol/L (3.5-5.1); Protein, Total 6.8 g/dL (6.4-8.2); Sodium Level 139 mmol/L (136-145)
[2020-10-26] VITALS (9 sets, daily range): BP systolic 98–127; BP diastolic 54–99; PULSE 73–96; RESP 15–18; TEMP 36.5–36.7; O2SAT 96–100; BMI 21.1
[2020-10-26 00:41] LABS: Amphetamine Urine VISTA POSITIVE (<1000 ng/mL); Barbiturate Urine VISTA NEGATIVE (< 200 ng/mL); Benzodiazepine Urine VISTA NEGATIVE (< 200 ng/mL); Cocaine Urine VISTA NEGATIVE (< 300 ng/mL); Ecstacy Urine VISTA POSITIVE (< 500 ng/mL); Methadone Urine VISTA NEGATIVE (< 300 ng/mL); PCP Urine VISTA NEGATIVE (< 25 ng/mL); THC Urine VISTA NEGATIVE (< 50 ng/mL); Vista UDS pH Range 6
--- NOTE | 2020-10-26 01:09 | HP.PCM.HOS_ITS ---
HPI - General HPI Narrative MARGARET THOMPSON, is a 30 M with a significant history of IV drug use and hepatitis C who presents to the emergency department for help with drug detoxification. Patient drug of choice is heroin/fentanyl. He shoots heroine/fentanyl. He uses not less than 1 g/day. Last time he used was a day before presentation. He began having withdrawal symptoms the morning on the day of presentation. He reported that he has been using heroin since age 17; and continuous for the last 1 month and a half. He was incarcerated for 90 days and not released on September 20, 2020. The same day that he was released he went back to using heroin. He reports having gone to rehabilitation at [facility]. Also he has been to [facility] at [place] [id number]. Also occasionally he uses methamphetamine. He issues the methamphetamine. Last time he used methamphetamine was about 3 days ago. He has been using methamphetamine since he was age 25. [facility] Medical History (Updated 10/26/20 @ 01:[address] Jeffrey Aburto MD) Hepatitis C Home Medications NK 10/26/20 [History Last Taken Unknown] Allergy/AdvReac Type Severity Reaction Status Date / Time No Known Allergies Allergy Verified 10/25/20 23:14 Family History (Updated 10/26/20 @ 01:[address] Jeffrey Aburto MD) Other Cancer Surgical History (Updated 10/26/20 @ 01:[address] Jeffrey Aburto MD) History of tonsillectomy Social History (System 11/14/18 @ 14:01 by Katie Shirley) Smoking Status: Current every day smoker tobacco type: cigarettes ROS ROS Narrative Constitutional: Reports feeling hot and cold. Denies anorexia and change in weight Eyes: Denies blurry vision, change in eye color, change in vision, discharge from eye(s), double vision, erythema, eye pain, loss of vision or other HEENT: Reports rhinorrhea. Denies abnormal hearing, dysphagia, ear pain, epistaxis, headache(s), hearing loss, sinus pressure, sore throat or other Cardiovascular: Denies chest pain. Denies dyspnea on exertion, orthopnea and paroxysmal nocturnal dyspnea Respiratory/Chest: Denies cough, excessive phlegm production, shortness of breath with exertion and wheezing Gastrointestinal: Reports nausea. Denies abdominal pain, coffee ground emesis, constipation, diarrhea, dyspepsia, hematemesis, hematochezia, loose stools, melena, vomiting or other Genitourinary: Denies burning urination, difficulty urinating, dysuria, hematuria, nocturia, urinary frequency, urinary hesitancy, urinary incontinence, urinary urgency or other Musculoskeletal: Reports myalgia. Denies arthralgias, back pain, joint pain, joint stiffness, joint swelling, neck pain or other Neurologic: Denies abnormal gait, abnormal speech, confusion, disequilibrium, dizziness, focal weakness, headache(s), numbness, paresthesias, seizure-like activity, seizures, syncope, tingling, tremor(s) or other Psychiatric: Denies anxiety, depression, homicidal ideation, suicidal ideation or other Endocrinology: Denies change in body appearance, cold intolerance, excessive s weating, heat intolerance, polydipsia, polyuria or other Hematologic/Lymphatic: Denies anemia, easy bleeding, easy bruising, lymphadenopathy or other Integumentary: Reports/Denies ulcer on buttocks. Allergic/Immunologic: Denies rhinitis, hives, eczema, asthma or other Vital Signs Vital Signs Vital Signs: 10/25/20 23:12 Temperature 97 F L Temperature Source Temporal Pulse Rate 94 Respiratory Rate 16 Blood Pressure 120/76 Blood Pressure Mean 90 Pulse Ox 97 Oxygen Delivery Method Room Air Weight Weight: 72.575 kg Body Mass Index (BMI) 23.6 Physical Exam Narrative Physical exam: General: Well-nourished, well-developed, no acute distress Head: Normocephalic, atraumatic, no tenderness Eyes: PERRLA, EOMI ENT, no trauma, moist mucous membranes, no rhinorrhea Neck: Nontender, full range of motion, no spinal tenderness, deformities, step- off CVS: Regular rate and rhythm Respiratory no acute distress, clear to auscultation bilaterally, chest wall nontender, no wheezing Abdomen: Soft, nontender, nondistended, normal bowel sounds, no masses : Deferred Back: Nontender, no CVA tenderness, no midline spinal tenderness, deformities, step-offs Extremities: Nontender full range of motion, no trauma Skin: Normal color, no trauma, abrasions Neuro: Alert, oriented, cranial nerves II through XII grossly intact. Psychiatry: Normal mood. Normal affect. Not depressed. Not anxious. Results Lab / Micro Data Result Diagrams: 10/25/20 23:30 07/23/21 23:30 Labs: Laboratory Results - last 24 hr 10/25/20 23:30: WBC 7.5, RBC 4.65, Hgb 13.0, Hct 40.2, MCV 86.5, MCH 28.0, MCHC 32.3, RDW Std Deviation 42.8, RDW Coeff of Toyin 13.6, Plt Count 391, MPV 10.2, Immature Gran % (Auto) 0.400, Neut % (Auto) 62.9, Lymph % (Auto) 20.3, [place] % (Auto) 11.7 H, Eos % (Auto) 3.9, Baso % (Auto) 0.8, Absolute Neuts (auto) 4.7, Absolute Lymphs (auto) 1.53, Nucleated RBC % 0 10/25/20 23:30: Sodium 139, Potassium 3.6, Chloride 104, Carbon Dioxide 30.0, Anion Gap 5, BUN 8, Creatinine 0.80, Estim Creat Clear Calc 132.56, Est GFR (MDRD) Af Amer 144, Est GFR (MDRD) Non-Af 119, BUN/Creatinine Ratio 10.0, Glucose 135 H, Calcium 8.6, Total Bilirubin 0.50, AST 58 H, ALT 71 H, Alkaline Phosphatase 108, Total Protein 6.8, Albumin 3.2, Globulin 3.6, Albumin/Globulin Ratio 0.9 10/25/20 23:30: Ethyl Alcohol < 3.0 10/26/20 00:14: Urine Opiates Screen NEGATIVE, Urine Methadone Screen NEGATIVE, Ur Barbiturates Screen NEGATIVE, Ur Phencyclidine Scrn NEGATIVE, Ur Amphetamines Screen POSITIVE H, U Methamphetamin-MDMA POSITIVE H, U Benzodiazepines Scrn NEGATIVE, Urine Cocaine Screen NEGATIVE, U Cannabinoids Screen NEGATIVE, Ur Drug Screen Comment Assessment & Plan Assessment/Plan (1) Amphetamine abuse: (2) Nicotine dependence: QUALIFIERS: Nicotine product type: cigarettes Substance use status: uncomplicated Qualified Code(s): F17.210 - Nicotine dependence, cigarettes, uncomplicated (3) IV drug user: PLAN: Opioid dependence and withdrawal Toxicology was reviewed. Patient positive for amphetamines and methamphetamines. Urine opiates were negative. CBC was reviewed. CBC was unremarkable Patient be started on Subutex and other adjunctive medications: Gabapentin as needed; dicyclomine as needed; Vistaril as needed; methocarbamol as needed; clonidine as needed; Imodium as needed; trazodone as needed and Zofran as needed. Monitor COWS and CINA score Tobacco abuse Counseled Nicotine patch and nicotine gum prescribed. Methamphetamine abuse Counselled. Elevated liver enzymes. Chronic. Likely secondary to hepatitis C. DVT prophylaxis Low risk Encourage to ambulate Charges/Coding Visit Charges OBSV E&M: 23629 Initial observation care L2
[2020-10-26] MEDS: hydrOXYzine PAM 25 MG Capsule 50 MG PO ×3 (03:11→18:33)
[2020-10-26] MEDS: traZODone 100 MG Tablet PO (03:11)
[2020-10-26] MEDS: Buprenorphine HCl 2 MG TAB.SUBL SL ×3 (03:12→18:33)
[2020-10-26] MEDS: Dicyclomine 10 MG Capsule 20 MG PO ×3 (03:14→18:33)
[2020-10-26] MEDS: Ondansetron 8 MG Tablet PO ×2 (09:40→18:36)
[2020-10-26] MEDS: Methocarbamol 750 MG Tablet 1500 MG PO ×2 (09:41→18:34)
[2020-10-26] MEDS: Gabapentin 300 MG Capsule PO (09:41)
[2020-10-26] MEDS: BACITRACIN 15 GM Tube 1 APPLIC TOPICAL (22:09)
[2020-10-27 03:01] VITALS: BP 98/54; PULSE 77; RESP 16; TEMP 36.6; O2SAT 96
[2020-10-27] MEDS: Methocarbamol 750 MG Tablet 1500 MG PO ×2 (03:03→18:37)
[2020-10-27] MEDS: Buprenorphine HCl 2 MG TAB.SUBL SL ×3 (03:03→18:33)
[2020-10-27] MEDS: Gabapentin 300 MG Capsule PO (07:19)
[2020-10-27 10:48] VITALS: BP 104/67; PULSE 87; RESP 16; TEMP 36.2; O2SAT 95
--- NOTE | 2020-10-27 11:25 | PN.HOSP_ITS ---
Subjective Subjective Doing well, no issues overnight. Has a Cina score of 3 Objective Data Objective Data Vital Signs: Vital Signs Temp Pulse Resp BP Pulse Ox 97.2 F L 87 16 104/67 95 10/27/20 10:48 10/27/20 10:48 10/27/20 10:48 10/27/20 10:48 10/27/20 10:48 Oxygen Delivery Method Room Air Weight: 143 lb 1.28 oz Body Mass Index (BMI) 21.1 Intake & Output: Intake and Output for Last 24 Hours 10/26/20 10/27/20 10/28/20 03:59 03:59 03:59 Intake Total 2270 / 2270 220 / 220 Balance 2270 / 2270 220 / 220 Medical Nutrition Assessment Dietitian: Nutrition Therapy Diagnosis Start: 10/26/20 16:04 Freq: Status: Active Protocol: Document 10/26/20 16:17 BP (Rec: 10/26/20 16:17 BP [id number]) Nutrition Malnutrition Evidence of Malnutrition Exists Yes Malnutrition (severe): Social/Behavioral/ Environmental Evidenced By Suboptimal Energy Intake ( Severe),Weight Loss (Severe), Physical Changes (Severe) Clinical Problem Starvation Related Malnutrition Etiology Severe malnutrition in the context of social/behavioral/ environmental circumstances related to inadequate oral intake and severe unintentional weight loss Signs/Symptoms as evidenced by pt consuming < /=50% energy intake compared to estimated energy needs x >/ =1 month due to opiate use, reported severe unintentional wt loss 18% x 1 1/2 months, and +NFPE: severe temporal scooping/depression, severe orbial bone hollow look/ depression, severe clavicle bone protrusion. Status Active Problem Recommendation Dietitian Recommendations/Changes Continue regular diet with Ensure enlive 120 ml 4x/day at [employer] and snacks as needed. Lab / Micro Data Result Diagrams: 10/25/20 23:30 10/25/20 23:30 Physical Exam Const alert, oriented x3 and no apparent distress General Appearance: cooperative HEENT normocephalic Mouth: dry mucous membranes Eyes PERRL, EOMs intact bilaterally and conjunctivae normal Neck supple and no JVD Resp normal respiratory effort, no retractions, no use of accessory muscles and clear to auscultation bilaterally Auscultation: Negative for crackles, rales, rhonchi or wheezes Cardio regular rate, regular rhythm, S1 normal heart sound, S2 normal heart sound and no murmurs GI soft to palpation, non-tender and non-distended; Negative for hepatosplenomegaly Extremity no clubbing, cyanosis or edema Skin no rashes or lesions noted Neuro no focal motor deficits and no sensory deficits noted Psych affect normal Appearance: appropriate Assessment & Plan Assessment/Plan (1) Amphetamine abuse: (2) Nicotine dependence: QUALIFIERS: Nicotine product type: cigarettes Substance use status: uncomplicated Qualified Code(s): F17.210 - Nicotine dependence, cigarettes, uncomplicated (3) IV drug user: PLAN: 1. Acute opiate withdrawal/tobacco abuse/methamphetamine abuse/elevated LFTs/chronic hepatitis C -Continue with the opiate withdrawal protocol -Continue with nicotine patch, counseled on cessation -LFTs are chronic -Discussed that he will need to quit drugs if he wants to get treatment for his hepatitis C DVT: Ambulation Charges/Coding Visit Charges Inpatient E&M: 71527 Subs Hosp L2
[2020-10-27 14:07] VITALS: O2SAT 95
[2020-10-27 14:31] VITALS: BP 112/67; PULSE 83; RESP 16; TEMP 36.3; O2SAT 99
[2020-10-27 20:40] VITALS: BP 109/67; PULSE 84; RESP 16; TEMP 36.2; O2SAT 98
[2020-10-28 02:55] VITALS: BP 106/65; PULSE 98; RESP 18; TEMP 36.2; O2SAT 98
[2020-10-28] MEDS: Buprenorphine HCl 2 MG TAB.SUBL SL ×2 (03:04→13:54)
[2020-10-28 07:00] VITALS: O2SAT 97
--- NOTE | 2020-10-28 07:30 | PCM.DC ---
Discharge Instructions Diet Discharge Diet: No restrictions Activity Discharge Activity: Return to Normal Activity Dressing / Incision Call your doctor if you observe: Fever of 101 or Higher, Shortness of breath, Dizziness, Swelling in the ankles, Chest pain and Increased palpitations (irregular heartbeat) Follow Up Care Test Results: Test results from this visit will be discussed in further detail at your follow-up appointment, if applicable. Discharge Plan Admission Admit Date/Time: 10/26/20 01:08 Attending Provider: Fab Colon Discharge Orders/Prescriptions Prescriptions: No Action NK RF: 0 Referrals / Follow Up: [facility] [Other] - In 1 Week Disposition Disposition (needs filled in before D/C Order can be placed): Home, Self Care
[2020-10-28 08:05] VITALS: BP 106/61; PULSE 102; RESP 15; TEMP 36.2; O2SAT 98
[2020-10-28] MEDS: Acetaminophen 325 MG Tablet 650 MG PO (08:40)
--- NOTE | 2020-10-28 10:05 | ADDICTION ---
This principal technical writer met with PT to conduct ASAM, MSE, DUDIT assessments and to plan for d/c. All assessments completed. PT requesting direct admit to [facility]. This principal technical writer will make referral and will coordinate, as appropriate.
--- NOTE | 2020-10-28 11:55 | PN.HOSP_ITS ---
Subjective Subjective Feels better, will complete his taper this afternoon however he would like to go to residential treatment if possible Objective Data Objective Data Vital Signs: Vital Signs Temp Pulse Resp BP Pulse Ox 97.2 F L 102 H 15 106/61 98 10/28/20 08:05 10/28/20 08:05 10/28/20 08:05 10/28/20 08:05 10/28/20 08:05 Oxygen Delivery Method Room Air Weight: 143 lb 1.28 oz Body Mass Index (BMI) 21.1 Intake & Output: Intake and Output for Last 24 Hours 10/27/20 10/28/20 10/29/20 03:59 03:59 03:59 Intake Total 2270 / 2270 700 / 700 860 / 860 Balance 2270 / 2270 700 / 700 860 / 860 Medical Nutrition Assessment Dietitian: Nutrition Therapy Diagnosis Start: 10/26/20 16:04 Freq: Status: Active Protocol: Document 10/26/20 16:17 BP (Rec: 10/26/20 16:17 BP [id number]) Nutrition Malnutrition Evidence of Malnutrition Exists Yes Malnutrition (severe): Social/Behavioral/ Environmental Evidenced By Suboptimal Energy Intake ( Severe),Weight Loss (Severe), Physical Changes (Severe) Clinical Problem Starvation Related Malnutrition Etiology Severe malnutrition in the context of social/behavioral/ environmental circumstances related to inadequate oral intake and severe unintentional weight loss Signs/Symptoms as evidenced by pt consuming < /=50% energy intake compared to estimated energy needs x >/ =1 month due to opiate use, reported severe unintentional wt loss 18% x 1 1/2 months, and +NFPE: severe temporal scooping/depression, severe orbial bone hollow look/ depression, severe clavicle bone protrusion. Status Active Problem Recommendation Dietitian Recommendations/Changes Continue regular diet with Ensure enlive 120 ml 4x/day at [employer] and snacks as needed. Lab / Micro Data Result Diagrams: 10/25/20 23:30 10/25/20 23:30 Physical Exam Const alert, oriented x3 and no apparent distress General Appearance: cooperative HEENT normocephalic Eyes PERRL, EOMs intact bilaterally and conjunctivae normal Neck supple and no JVD Resp normal respiratory effort, no retractions, no use of accessory muscles and clear to auscultation bilaterally Auscultation: Negative for crackles, rales, rhonchi or wheezes Cardio regular rate, regular rhythm, S1 normal heart sound, S2 normal heart sound and no murmurs GI soft to palpation, non-tender and non-distended; Negative for hepatosplenomegaly Extremity no clubbing, cyanosis or edema Skin no rashes or lesions noted Neuro no focal motor deficits and no sensory deficits noted Psych affect normal Appearance: appropriate Assessment & Plan Assessment/Plan (1) Amphetamine abuse: (2) Nicotine dependence: QUALIFIERS: Nicotine product type: cigarettes Substance use stat us: uncomplicated Qualified Code(s): F17.210 - Nicotine dependence, cigarettes, uncomplicated (3) IV drug user: PLAN: 1. Acute opiate withdrawal/tobacco abuse/methamphetamine abuse/elevated LFTs/chronic hepatitis C -Continue with the opiate withdrawal protocol -Continue with nicotine patch, counseled on cessation -LFTs are chronic -Discussed that he will need to quit drugs if he wants to get treatment for his hepatitis C -Plan for 180 residential treatment DVT: Ambulation Charges/Coding Visit Charges Inpatient E&M: 48856 Subs Hosp L2
[2020-10-28] MEDS: hydrOXYzine PAM 25 MG Capsule 50 MG PO (13:58)
[2020-10-28 14:00] VITALS: BP 119/70; PULSE 104; RESP 18; TEMP 36.6; O2SAT 99
[2020-10-28 19:59] VITALS: BP 108/72; PULSE 104; RESP 16; TEMP 36.9; O2SAT 100
[2020-10-29] MEDS: cloNIDine HCl 0.1 MG Tablet PO ×2 (01:33→09:51)
[2020-10-29 01:37] VITALS: BP 115/74; PULSE 93; RESP 16; TEMP 36.9; O2SAT 98
[2020-10-29 07:21] VITALS: O2SAT 98
[2020-10-29] MEDS: BACITRACIN 15 GM Tube 1 APPLIC TOPICAL (09:47)
[2020-10-29] MEDS: Acetaminophen 325 MG Tablet 650 MG PO ×2 (09:51→22:15)
--- NOTE | 2020-10-29 10:01 | ADDICTION ---
Referral for residential treatment sent to [facility]. This underwriter is waiting for official approval and will coordinate with [facility] for admission. Client amiable to plan of admit.
[2020-10-29 10:09] VITALS: BP 128/69; PULSE 90; RESP 18; TEMP 36.7; O2SAT 98
[2020-10-29 13:14] VITALS: BP 130/66; PULSE 90; RESP 18; TEMP 36.6; O2SAT 98
--- NOTE | 2020-10-29 13:48 | PCM.PN.HOSP ---
Subjective Subjective Doing well, doing well, no issues overnight. Planning for rehab inpatient tomorrow Objective Data Objective Data Vital Signs: Vital Signs Temp Pulse Resp BP Pulse Ox 97.9 F 90 18 130/66 H 98 10/29/20 13:14 10/29/20 13:14 10/29/20 13:14 10/29/20 13:14 10/29/20 13:14 Oxygen Delivery Method Room Air Weight: 143 lb 1.28 oz Body Mass Index (BMI) 21.1 Intake & Output: Intake and Output for Last 24 Hours 10/28/20 10/29/20 10/30/20 03:59 03:59 03:59 Intake Total 700 / 700 1420 / 1420 1000 / 1000 Balance 700 / 700 1420 / 1420 1000 / 1000 Medical Nutrition Assessment Dietitian: Nutrition Therapy Diagnosis Start: 10/26/20 16:04 Freq: Status: Active Protocol: Document 10/26/20 16:17 BP (Rec: 10/26/20 16:17 BP [id number]) Nutrition Malnutrition Evidence of Malnutrition Exists Yes Malnutrition (severe): Social/Behavioral/ Environmental Evidenced By Suboptimal Energy Intake ( Severe),Weight Loss (Severe), Physical Changes (Severe) Clinical Problem Starvation Related Malnutrition Etiology Severe malnutrition in the context of social/behavioral/ environmental circumstances related to inadequate oral intake and severe unintentional weight loss Signs/Symptoms as evidenced by pt consuming < /=50% energy intake compared to estimated energy needs x >/ =1 month due to opiate use, reported severe unintentional wt loss 18% x 1 1/2 months, and +NFPE: severe temporal scooping/depression, severe orbial bone hollow look/ depression, severe clavicle bone protrusion. Status Active Problem Recommendation Dietitian Recommendations/Changes Continue regular diet with Ensure enlive 120 ml 4x/day at [facility] and snacks as needed. Lab / Micro Data Result Diagrams: 10/25/20 23:30 10/25/20 23:30 Physical Exam Const alert, oriented x3 and no apparent distress General Appearance: cooperative HEENT normocephalic Eyes PERRL, EOMs intact bilaterally and conjunctivae normal Neck supple and no JVD Resp normal respiratory effort, no retractions, no use of accessory muscles and clear to auscultation bilaterally Auscultation: Negative for crackles, rales, rhonchi or wheezes Cardio regular rate, regular rhythm, S1 normal heart sound, S2 normal heart sound and no murmurs GI soft to palpation, non-tender and non-distended; Negative for hepatosplenomegaly Extremity no clubbing, cyanosis or edema Skin no rashes or lesions noted Neuro no focal motor deficits and no sensory deficits noted Psych affect normal Appearance: appropriate Assessment & Plan Assessment/Plan (1) Amphetamine abuse: (2) Nicotine dependence: QUALIFIERS: Nicotine product type: cigarettes Substance use status: uncomplicated Qualified Code(s): F17.210 - Nicotine dependence, cigarettes, uncomplicated (3) IV drug user: PLAN: 1. Acute opiate withdrawal/tobacco abuse/methamphetamine abuse/elevated LFTs/chronic hepatitis C -Continue with the opiate withdrawal protocol -Continue with nicotine patch, counseled on cessation -LFTs are chronic -Discussed that he will need to quit drugs if he wants to get treatment for his hepatitis C -Plan for [facility] residential treatment DVT: Ambulation Charges/Coding Visit Charges Inpatient E&M: 62072 Subs Hosp L2
[2020-10-29 19:51] VITALS: BP 125/68; PULSE 89; RESP 16; TEMP 36.9; O2SAT 98
[2020-10-29] MEDS: traZODone 100 MG Tablet PO (22:15)
[2020-10-29] MEDS: hydrOXYzine PAM 25 MG Capsule 50 MG PO (22:15)
[2020-10-30 05:00] VITALS: BP 92/48; PULSE 83; RESP 16; TEMP 36.6; O2SAT 97
[2020-10-30 07:58] VITALS: O2SAT 97
--- NOTE | 2020-10-30 09:03 | ADDICTION ---
This science writer met with PT to finalize d/c plans. PT to d/c and will be picked up by his father who plans to transport him directly to [facility] in [place], [place], today. PT amiable to this plan.
[2020-10-30 09:11] VITALS: BP 108/64; PULSE 91; RESP 14; TEMP 36.4; O2SAT 98
--- NOTE | 2020-10-30 14:33 | PCM.DC ---
Discharge Instructions Diet Discharge Diet: No restrictions Activity Discharge Activity: Return to Normal Activity and May Not Drive Weight Bearing Status: Weight bearing as tolerated Dressing / Incision Call your doctor if you observe: Fever of 101 or Higher, Coldness, Increased Pain, Numbness or Tingling, Change in Color, Inability to urinate, Inability to have a bowel movement, Shortness of breath, Dizziness, Fainting spells, Swelling in the ankles, Chest pain, Prolonged hiccupping, Increased palpitations (irregular heartbeat) and Uncontrolled pain Follow Up Care Test Results: Test results from this visit will be discussed in further detail at your follow-up appointment, if applicable. Discharge Plan Admission Admit Date/Time: 10/26/20 01:08 Primary Reason for Your Visit: Acute opioid withdrawal syndrome Attending Provider: Jake Bianchi Discharge Orders/Prescriptions Prescriptions: New nicotine (polacrilex) 2 mg Gum 2 mg PO Q2H PRN PRN (Reason: craving) Qty: 0 RF: 0 nicotine 21 mg/24 hr Patch 24 Hour 21 mg transdermal DAILY Qty: 30 RF: 0 Referrals / Follow Up: BROOK BOATENG [Other] - In 1 Week Disposition Disposition (needs filled in before D/C Order can be placed): Home, Self Care
--- NOTE | 2020-10-30 14:37 | DS.PCM_ITS ---
Providers Date of Admission: 10/26/20 Date of Discharge: 10/30/20 Primary Care Physician: BROOK BOATENG Reason For Visit: OPIATE WITHDRAWAL Diagnosis Discharge Diagnosis (1) Amphetamine abuse: Status: Chronic Code(s): F15.10 - Other stimulant abuse, uncomplicated (2) Nicotine dependence: Status: Chronic Code(s): F17.200 - Nicotine dependence, unspecified, uncomplicated Qualifiers: Nicotine product type: cigarettes Substance use status: uncomplicated Qualified Code(s): F17.210 - Nicotine dependence, cigarettes, uncomplicated (3) IV drug user: Status: Chronic Code(s): F19.90 - Other psychoactive substance use, unspecified, uncomplicated Medications at Discharge Home Medications nicotine 21 mg TRANSDERMAL DAILY #30 ea 10/30/20 nicotine (polacrilex) 2 mg PO Q2H PRN PRN #0 ea 10/30/20 Hospital Course Summary of Care Provided Hospital Course: Patient is a 30-year-old gentleman with history of chronic opioid use and dependence admitted with acute opioid withdrawal syndrome. Patient also smokes a pack per day since teenage. Methamphetamine use and dependence. Patient has chronically elevated liver transaminases with history of chronic hepatitis C possible from substance use too. Patient was seen and evaluated by [facility]. [facility] employment case manager agreed for home discharge with his father. Discharge medication reconciliation done. Discharge follow-up instructions completed. Discharge process discussed with the patient and all questions were answered to patient's satisfaction. Prescription for nicotine transdermal patch given. Total time spent, exact 35 minutes on discharge meds reconciliation, examination, coordination of care with nurses and ancillary staff, review of imaging and blood test and discussion with the patient on follow-up instructions Physical Exam Narrative Seen and examined in the morning Patient withdrawal symptoms are well controlled. Is mild anxiety. No tremors. No hallucinations seizures or delusions. Patient is using IV needles. History of hepatitis C. Physical exam General: Alert, Oriented x3, Cooperative HEENT: Atraumatic, PERRLA, EOMI, Normocephalic Oral: No Gingival or Mucosal Lesions/ Ulcerations Neck: Supple, No JVD, Negative Carotid Bruits Lungs: Air entry equal in bilateral lung bases. No crepitation/rhonchi Cardiovascular: Regular rate, Regular Rhythm, Normal S1, Normal S2, No murmurs Abdomen: Bowel Sounds Present, Soft, Non Tender, Non-Distended : No renal angle tenderness. No suprapubic tenderness. Extremities: No edema, Capillary Refill Less than 3 Seconds Skin: No rashes, No breakdown Musculoskeletal: No Tenderness to Palpation of Joints or Extremities Neurological: Cranial nerves II-XII grossly intact, Deep Tendon Reflexes 2+/4 and Symmetrical, Neuro grossly intact Psych/Mental Status: Normal Affect, Appropriate. Medical Records Data Medical Nutrition Assessment Dietitian: Nutrition Therapy Diagnosis Start: 10/26/20 16:04 Freq: Status: Active Protocol: Document 10/26/20 16:17 BP (Rec: 10/26/20 16:17 BP [id number]) Nutrition Malnutrition Evidence of Malnutrition Exists Yes Malnutrition (severe): Social/Behavioral/ Environmental Evidenced By Suboptimal Energy Intake ( Severe),Weight Loss (Severe), Physical Changes (Severe) Clinical Problem Starvation Related Malnutrition Etiology Severe malnutrition in the context of social/behavioral/ environmental circumstances related to inadequate oral intake and severe unintentional weight loss Signs/Symptoms as evidenced by pt consuming < /=50% energy intake compared to estimated energy needs x >/ =1 month due to opiate use, reported severe unintentional wt loss 18% x 1 1/2 months, and +NFPE: severe temporal scooping/depression, severe orbial bone hollow look/ depression, severe clavicle bone protrusion. Status Active Problem Recommendation Dietitian Recommendations/Changes Continue regular diet with Ensure enlive 120 ml 4x/day at [facility] and snacks as needed. Weight / BMI Weight Weight: 143 lb 1.28 oz Body Mass Index (BMI) 21.1 ABG / Lab / Microbiology Data Result Diagrams: 10/25/20 23:30 10/25/20 23:30 D/C Instructions Discharge Diet: No restrictions Weight Bearing Status: Weight bearing as tolerated Call your doctor if you observe: Fever of 101 or Higher, Coldness, Increased Pain, Numbness or Tingling, Change in Color, Inability to urinate, Inability to have a bowel movement, Shortness of breath, Dizziness, Fainting spells, Swelling in the ankles, Chest pain, Prolonged hiccupping, Increased palpitations (irregular heartbeat) and Uncontrolled pain Meaningful Use Info Meaningful Use Diagnoses (Choose all that apply): None applicable Discharge Plan Admission Admit Date/Time: 10/26/20 01:08 Primary Reason for Your Visit: Acute opioid withdrawal syndrome Attending Provider: Jake Bianchi Discharge Orders/Prescriptions Prescriptions: New nicotine (polacrilex) 2 mg Gum 2 mg PO Q2H PRN PRN (Reason: craving) Qty: 0 RF: 0 nicotine 21 mg/24 hr Patch 24 Hour 21 mg transdermal DAILY Qty: 30 RF: 0 Referrals / Follow Up: BROOK BOATENG [Other] - In 1 Week Disposition Disposition (needs filled in before D/C Order can be placed): Home, Self Care Charges/Coding Visit Charges Inpatient E&M: 00373 Disch Hosp
--- NOTE | 2020-10-30 15:45 | NURSING ---
Quyen at [facility] called and message left on voice mail that patient was leaving our facility as per request to be notified when discharged.
--- NOTE | 2020-10-30 15:46 | PHA.DC.MC ---
Pharmacy Service has performed discharge medication reconciliation and counseling for this patient. 1. NICOTINE PATCH 21MG TRANSDERMAL ONCE DAILY 2. NICOTINE 2MG GUM MM Q2H PRN NICOTINE CRAVING The patient's discharge medication list was reviewed for discrepancies and discrepancies were resolved. Home Medications nicotine 21 mg TRANSDERMAL DAILY #30 ea 10/30/20 nicotine (polacrilex) 2 mg PO Q2H PRN PRN #0 10/30/20 The patient was counseled on the following discharge medications and changes in medications for homegoing were reviewed. The Reason for Use, instructions for use, and potential side effects were reviewed for all new medications. The patient's questions regarding all of their medications were answered. The patient was able to verbally demonstrate an understanding of their discharge medications.
== END 2020-10-30 15:48 | disposition home or self-care (01) | DRG 773 ==
LOC: ED 10-26 00:15 → PCU 10-26 03:08
PROVIDERS: Admitting Provider Hospitalist; Emergency Provider Student in an Organized Health Care Education/Training Program; Visit Provider Internal Medicine
DX: F11.23 Opioid dependence with withdrawal (principal); F15.10 Other stimulant abuse, uncomplicated; B18.2 Chronic viral hepatitis C; E43 Unspecified severe protein-calorie malnutrition; Z68.21 Body mass index [BMI] 21.0-21.9, adult; F17.210 Nicotine dependence, cigarettes, uncomplicated
CPT/HCPCS: 36415; 80053; 80307; 82077; 85025; 97802; 97803; 99282; 99406

== ENCOUNTER 2020-11-03 18:36 | Inpatient (IN) | payer MEDICAID, SELFPAY ==
[2020-10-26 02:47] VITALS: BMI 21.1
[2020-11-03 18:37] VITALS: BP 124/85; PULSE 128; RESP 14; TEMP 37.1; O2SAT 97; BMI 22.4
--- NOTE | 2020-11-03 19:20 | EX.ED.DYSGE1 ---
HPI History of Present Illness Chief Complaint: Substance Abuse Informant: patient Narrative Narrative: Patient is a 30-year-old male who presents to the emergency department to request to detox from fentanyl. Patient was actually discharged in a detox program 3 days ago. He states he was supposed to be transported to a facility to help with this. His father ended up not taking him and kicked him out of the house. Because of this he ended up started to use again. He last used yesterday. He states that he does not want to use anymore. Patient states he is feeling he is going through withdrawal at this time. He is having some abdominal pain, some diarrhea as well as cold chills. [facility] Medical History (Updated 11/04/20 @ 00:[address] Jeffrey Xiao DO) Amphetamine abuse Asthma Hepatitis Hepatitis C IV drug user Nicotine dependence Opiate abuse, continuous Home Medications NK 11/03/20 [History Last Taken Unknown] Allergy/AdvReac Type Severity Reaction Status Date / Time No Known Allergies Allergy Verified 11/03/20 18:38 Family History (Updated 11/03/20 @ 19:[address] Elisa Herrera MD) Mother Cancer History of Non-small cell Lung CA, tobacco use history concurrently, passed. Surgical History History of tonsillectomy Social History (Updated 11/03/20 @ 19:[address] Elisa Herrera MD) housing: homeless Smoking Status: Current every day smoker tobacco type: cigarettes alcohol intake: never substance use type: opiates, IV drugs, methamphetamine and other details: Fentanyl IV, at least 1 gm daily. Meth also IV, sporadic usage. ROS ROS ED Constitutional Constitutional ED: Reports chills and sweats; Denies fever(s) ENT ENT ED: Denies rhinorrhea Cardiovascular Cardiovascular: Denies chest pain Respiratory/Chest Respiratory/Chest: Denies cough or dyspnea Gastrointestinal Gastrointestinal: Reports abdominal pain; Denies nausea or vomiting Genitourinary Genitourinary ED: Denies dysuria, hematuria or urinary frequency Musculoskeletal Musculoskeletal: Reports myalgias; Denies back pain or neck pain Integumentary Denies rash Neurologic Neurologic: Denies headache(s) EXAM Physical Exam Const Vital Signs: 11/03/20 18:37 Temperature 98.7 F Temperature Source Temporal Pulse Rate 128 H Respiratory Rate 14 Blood Pressure 124/85 H Blood Pressure Mean 98 Pulse Ox 97 Oxygen Delivery Method Room Air Positive well nourished and well developed General Appearance ED: well developed and NAD HEENT Reports normocephalic, head/scalp atraumatic and moist mucous membranes Eyes PERRL and EOMs intact bilaterally Neck supple Chest Wall inspection of chest normal Resp normal respiratory effort Cardio regular rhythm Rate: tachycardic Extremity normal to inspection General Extremety ED: Negative for edema General Extremity: Negative for edema Neuro oriented x3, CN's II-XII intact bilaterally and no sensory deficits noted Sensorium / Orientation: alert Motor Exam: strength 5/5 throughout Psych mental status grossly normal Skin no rashes or lesions noted MDM MDM MDM Narrative Medical decision making narrative: Patient presents to the emergency department to detox from fentanyl. Patient was just discharged from detox facility 3 days ago. He is requesting to be put back into the program as he does not want to use anymore. I told him this is unlikely that the hospitalist will readmit the patient but I will discuss this with them. The hospitalist actually was then willing to admit the patient. They are going to order their own lab test. Patient will be brought to the hospital for detox at this time. He otherwise has remained stable throughout ED stay. Lab Data Labs: Laboratory Results - last 24 hr 11/03/20 19:04 Urine Opiates Screen NEGATIVE Urine Methadone Screen NEGATIVE Ur Barbiturates Screen NEGATIVE Ur Phencyclidine Scrn NEGATIVE Ur Amphetamines Screen NEGATIVE U Methamphetamin-MDMA NEGATIVE U Benzodiazepines Scrn NEGATIVE Urine Cocaine Screen NEGATIVE U Cannabinoids Screen NEGATIVE Ur Drug Screen Comment Discharge Plan Triage Chief Complaint: Substance Abuse ED Provider: Jeffrey Xiao Dx/Rx/DC Orders Clinical Impression: Opioid withdrawal Disposition Disposition: Acute Care Hospital [facility] Discharge Date/Time: 11/03/20 20:04
--- NOTE | 2020-11-03 19:27 | HP.PCM.HOS_ITS ---
HPI - General General Date of Service: 11/03/20 Chief Complaint: Acute Opiate Withdrawal HPI Narrative The patient is a 30 y/o M w/ PMHx: Asthma, Hepatitis C w/ Chronic LFT elevations, Tobacco use, Polysubstance abuse including IVDA, Fentanyl and Methamphetamines with recent discharge on 10/30/20 following treatment for opiate abuse with [facility] evaluation and discharge to his father's care who now re-presents to the [facility] ED on 11/03/20 with acute opiate withdrawal noting to have immediately relapsed upon recent discharge, noting that initially he was supposed to transition to rehab facility; however, he was unable to thus planned to transition to live temporarily with his father but unable to fund the cost of getting to his home, causing tension and fighting between them, eventually he noted he was kicked out and starting using again with last fentanyl usage 0700 the day prior with onset abdominal pain, generalized body aches and pains, rhinorrhea, fatigue, restless leg, diaphoresis. Patient interested in attaining clean status. No labs obtained in the ED prior to evaluation with pending CBC, CMP, UDS, EtOH upon admission. VS in the ED included T 98.7, HR 128, BP 124/85, 97% on [facility] Medical History (Updated 11/03/20 @ 19:[address] Elisa Herrera MD) Amphetamine abuse Asthma Hepatitis C IV drug user Nicotine dependence Opiate abuse, continuous Home Medications NK 11/03/20 [History Last Taken Unknown] Allergy/AdvReac Type Severity Reaction Status Date / Time No Known Allergies Allergy Verified 11/03/20 18:38 Family History (Updated 11/03/20 @ 19:[address] Elisa Herrera MD) Mother Cancer History of Non-small cell Lung CA, tobacco use history concurrently, passed. no significant family history (Patient denies any marked paternal family history including HD, DM, CA, substance abuse.) Surgical History History of tonsillectomy Social History (Updated 11/03/20 @ 19:[address] Elisa Herrera MD) housing: homeless Smoking Status: Current every day smoker tobacco type: cigarettes Smoking packs per day: 1 Smoking cigarettes per day: 20.0 Years smoked: 20 Smoking pack-years: 20.00 alcohol intake: never substance use type: opiates, IV drugs, methamphetamine and other details: Fentanyl IV, at least 1 gm daily. Meth also IV, sporadic usage. ROS ROS Narrative Admission Review of Systems: CONSTITUTIONAL: No weight loss, fever, + chills, weakness or fatigue. HEENT: + rhinorrhea, congestion. Eyes: No visual loss, blurred vision, double vision or yellow sclerae. Ears, Nose, Throat: No hearing loss, sneezing, sore throat. SKIN: No rash or itching, lesions, wounds. CARDIOVASCULAR: No chest pain, chest pressure or chest discomfort, palpitations, edema, orthopnea, syncopal events. RESPIRATORY: No shortness of breath, cough or sputum, wheezing, hemoptysis. GASTROINTESTINAL: + anorexia, nausea, No vomiting or diarrhea, abdominal pain, melena, BRBPR. GENITOURINARY: No dysuria, frequency, urgency or retention. NEUROLOGICAL: No headache, dizziness, syncope, paralysis, ataxia, numbness or tingling in the extremities, focal weakness, change in bowel or bladder control, seizure. MUSCULOSKELETAL:+ muscle, back pain, joint pain or stiffness. HEMATOLOGIC: No anemia, bleeding or bruising. LYMPHATICS: No enlarged nodes. No history of splenectomy. PSYCHIATRIC: No history of depression or anxiety. ENDOCRINOLOGIC: No reports of sweating, cold or heat intolerance. No polyuria or polydipsia. ALLERGIES: No history of asthma, hives, eczema or rhinitis. Vital Signs Vital Signs Vital Signs: 11/03/20 18:37 Temperature 98.7 F Temperature Source Temporal Pulse Rate 128 H Respiratory Rate 14 Blood Pressure 124/85 H Blood Pressure Mean 98 Pulse Ox 97 Oxygen Delivery Method Room Air Weight Weight: 152 lb 1.903 oz Body Mass Index (BMI) 22.4 Physical Exam Narrative Physical Examination: General: Awake, alert, oriented x 3 and cooperative, seated upright in the ED bed, mildly restless, moving frequently but fatigued appearing. Skin: Normal color, normal turgor, no icterus, no cyanosis except occasional track parminder, most recently right forearm, no obvious cellulitic appearance. HEENT: AT/NC, EOMI, PERRLA, moderately dry MM, no carotid bruits or JVD noted. Lungs: Diminished breath sounds, greater bases, moderate effort, no rales, ronchi or wheezing. Heart: Tachycardic with regular rhythm; no gallop, rub audible. Abdomen: Soft, mild discomfort to right upper quadrant palpation otherwise nontender to palpation, no rebound or guarding, ND, mildly hyperactive BS, no obvious HSM. Extremities: No cyanosis, clubbing, or edema. Neurological: Patient awake, alert, oriented as noted, cognitive function intact; pupils equally reactive to light and accommodation, cranial nerves II- XII grossly normal, moving all 4 extremities, no focal deficits, strength mildly moderately low decrease secondary to acute presentation, restless, moving frequently in the ED bed, fatigued appearing. Psychiatric: Affect appears fatigued and also restless, no acute evidence of depressive or anxiety feelings. Assessment & Plan Assessment/Plan (1) Opioid withdrawal: PLAN: The patient is a 30 y/o M w/ PMHx: Asthma, Hepatitis C w/ Chronic LFT elevations, Tobacco use, Polysubstance abuse including IVDA, Fentanyl and Methamphetamines with recent discharge on 10/30/20 following treatment for opiate abuse with [facility] evaluation and discharge to his father's care who now re-presents to the [facility] ED on 11/03/20 with acute opiate withdrawal. 1. Acute Opiate Withdrawal: Will admit to [facility], routine labs including CBC, CMP, urine for drug screen, EtOH level will be obtained now. Given patient interest and difficulty with discharge recently with unfortunate immediate relapse associated, discussed with patient will for this time plan to re-admit, will initiate and continue on protocol with tapering course of Subutex, as needed tylenol, ibuprofen, bowel regimen, gabapentin, Bentyl, Vistaril, methocarbamol, clonidine, PRN nightly trazodone for insomnia, IV fluids, IV antiemetics. Once patient clinically improved and completion of taper nearing will plan consultation with case management for transition to next level of rehabilitation care. 2. Polysubstance Abuse, IVDA Hx, History of Hepatitis C, Chronic: Patient currently not candidate for hep C treatment currently as needs to be clean, sober x 6 months, documented attendance NA or AA meetings, counseling and ongoing negative drug screens. Encouraged PCP establishment and follow-up. 3. Chronic Asthma: Not on routine regimen, encourage tobacco cessation, PRN albuterol. 4. Tobacco Abuse: Encouraged cessation, inpatient consultation per RT, NR if desired. 5. DVT prophylaxis: Low risk, encourage ambulation. Charges/Coding Visit Charges Inpatient E&M: 17936 Init Hosp L3
[2020-11-03 19:40] VITALS: BP 116/74; PULSE 74; RESP 15; RESP 17; TEMP 36.6; O2SAT 99
[2020-11-03 19:59] LABS: Amphetamine Urine VISTA NEGATIVE (<1000 ng/mL); Barbiturate Urine VISTA NEGATIVE (< 200 ng/mL); Benzodiazepine Urine VISTA NEGATIVE (< 200 ng/mL); Cocaine Urine VISTA NEGATIVE (< 300 ng/mL); Ecstacy Urine VISTA NEGATIVE (< 500 ng/mL); Methadone Urine VISTA NEGATIVE (< 300 ng/mL); PCP Urine VISTA NEGATIVE (< 25 ng/mL); THC Urine VISTA NEGATIVE (< 50 ng/mL); Vista UDS pH Range 6
[2020-11-03 20:18] LABS: Absolute Lymphocyte Count 1.09 X10^3/uL (0.83-4.51); Absolute Neutrophil Count 11.2 X10^3/uL (2.0-7.7); Basophil# 0.08 X10^3/uL; Basophil% 0.6 % (0-1); Eosinophil# 0.16 X10^3/uL; Eosinophils% 1.2 % (0-5); Hematocrit 39.8 % (40-54); Hemoglobin 13.1 g/dL (13.0-16.5); Lymphocyte # 1.09 X10^3/ul (0.83-4.51); Mean Corp Hgb Conc 32.9 g/dL (32-36); Mean Corpuscular Hgb 28.2 pg (27.0-32.0); Mean Corpuscular Volume 85.6 fL (80-94); Mean Platelet Vol. 11.1 fl (6.2-12.0); Monocyte# 1.03 X10^3/uL; Monocyte% 7.6 % (0-10); NRBC Flagged by Analyzer 0 % (0-5); Neutrophil # 11.23 X10^3/uL (2.7-7.7); Neutrophil % 82.3 % (47-70); Platelet Count 336 K/mm3 (150-450); RBC Distribution Width SD 43.4 fl (35.1-43.9); Red Blood Count 4.65 M/mm3 (4.6-6.2); White Blood Count 13.6 K/mm3 (4.4-11.0)
[2020-11-03 20:22] VITALS: BMI 21.9
[2020-11-03 20:25] VITALS: BP 121/77; PULSE 88; RESP 16; TEMP 36.8; O2SAT 98
[2020-11-03 20:33] LABS: ALB/GLOB Ratio 0.9 RATIO (0.9-2.4); AST(SGOT) 63 U/L (15-37); Alanine Aminotransfer ALT/SGPT 100 U/L (16-61); Albumin, Serum 3.1 g/dL (3.2-5.0); Alkaline Phosphatase 154 U/L (45-117); Anion Gap 4 (5-15); BUN 9 mg/dL (7-18); BUN/Creat Ratio 11.6 RATIO (10-20); Chloride 106 mmol/L (98-107); Creatinine, Serum 0.77 mg/dL (0.70-1.30); EST Glomerular Filtration Rate 123 mL/min (>60); Est Glom Filt Rate - Afr Amer 149 mL/min (>60); Estimated Creatinine Clearance 134.42 ml/min; Globulin 3.6 g/dL (2.2-4.2); Glucose 103 mg/dL (74-106); Protein, Total 6.7 g/dL (6.4-8.2); Sodium Level 138 mmol/L (136-145)
[2020-11-03 20:34] LABS: Alcohol, Blood (Medical)-Serum < 3.0 mg/dL
[2020-11-03] MEDS: Lactated Ringers 1,000 ML 125 ML IV (20:51)
[2020-11-03] MEDS: Buprenorphine HCl 2 MG TAB.SUBL SL (20:54)
[2020-11-03] MEDS: 0.9% Saline Lock 10 ML Syringe IV (20:55)
[2020-11-04] VITALS (7 sets, daily range): BP systolic 106–115; BP diastolic 61–70; PULSE 60–86; RESP 14–18; TEMP 36.2–37.2; O2SAT 96–100
[2020-11-04] MEDS: Dicyclomine 10 MG Capsule 20 MG PO ×2 (00:38→23:08)
[2020-11-04] MEDS: Methocarbamol 750 MG Tablet 1500 MG PO ×3 (00:38→23:08)
[2020-11-04] MEDS: Buprenorphine HCl 2 MG TAB.SUBL SL ×3 (04:48→22:59)
[2020-11-04] MEDS: hydrOXYzine PAM 25 MG Capsule 50 MG PO (04:48)
[2020-11-04] MEDS: Ondansetron 8 MG Tablet PO (08:35)
--- NOTE | 2020-11-04 08:47 | CASEMGMT ---
SOCIAL WORK Barry with [facility] [employer] updated on patient's admission to [facility]. Barry to be in this morning to complete assessment. Agustina Kumar, [employer] APPRENTICE PASTRY, [employer]
[2020-11-04] MEDS: Gabapentin 300 MG Capsule PO (10:29)
--- NOTE | 2020-11-04 11:10 | ADDICTION ---
TW met with pt to complete ASAM, DUDIT, BIANKA, MSE, and Discharge Plan. PT was a/o x4 and willingly engaged in discussion with TW. PT is requesting residential treatment upon release from detox. TW set up admission to [facility] for 11/06/20 if PT is ready for d/c. TW will set up transportation and will work with medical staff to identify time of d/c. PT reported symptoms of depression and anxiety but no past or current SI/HI.
--- NOTE | 2020-11-04 12:05 | PCM.PN.HOSP ---
Subjective Subjective The patient is a readmission after he was discharged on 10/30. At that time, he was discharged with his father but father refused to take care of him and he went back to the street and started substance use, IV fentanyl use Objective Data Objective Data Vital Signs: Vital Signs Temp Pulse Resp BP Pulse Ox 98.9 F 79 16 115/70 100 11/04/20 08:45 11/04/20 08:45 11/04/20 08:45 11/04/20 08:45 11/04/20 08:45 Oxygen Delivery Method Room Air Weight: 149 lb Body Mass Index (BMI) 21.9 Intake & Output: Intake and Output for Last 24 Hours 11/02/20 11/03/20 11/04/20 23:59 23:59 23:59 Intake Total 1400 / 1400 Balance 1400 / 1400 Lab / Micro Data Result Diagrams: 11/03/20 20:01 11/03/20 20:01 Labs: Laboratory Results - last 24 hr 11/03/20 19:04: Urine Opiates Screen NEGATIVE, Urine Methadone Screen NEGATIVE, Ur Barbiturates Screen NEGATIVE, Ur Phencyclidine Scrn NEGATIVE, Ur Amphetamines Screen NEGATIVE, U Methamphetamin-MDMA NEGATIVE, U Benzodiazepines Scrn NEGATIVE, Urine Cocaine Screen NEGATIVE, U Cannabinoids Screen NEGATIVE, Ur Drug Screen Comment 11/03/20 20:01: WBC 13.6 H, RBC 4.65, Hgb 13.1, Hct 39.8 L, MCV 85.6, MCH 28.2, MCHC 32.9, RDW Std Deviation 43.4, RDW Coeff of Toyin 14.0, Plt Count 336, MPV 11.1, Immature Gran % (Auto) 0.300, Neut % (Auto) 82.3 H, Lymph % (Auto) 8.0 L, [place] % (Auto) 7.6, Eos % (Auto) 1.2, Baso % (Auto) 0.6, Absolute Neuts (auto) 11.2 H, Absolute Lymphs (auto) 1.09, Nucleated RBC % 0 11/03/20 20:01: Sodium 138, Potassium 4.0, Chloride 106, Carbon Dioxide 28.0, Anion Gap 4 L, BUN 9, Creatinine 0.77, Estim Creat Clear Calc 134.42, Est GFR (MDRD) Af Amer 149, Est GFR (MDRD) Non-Af 123, BUN/Creatinine Ratio 11.6, Glucose 103, Calcium 8.0 L, Total Bilirubin 0.50, AST 63 H, ALT 100 H, Alkaline Phosphatase 154 H, Total Protein 6.7, Albumin 3.1 L, Globulin 3.6, Albumin/Globulin Ratio 0.9 11/03/20 20:01: Ethyl Alcohol < 3.0 Physical Exam Narrative General: Awake, anxious, hyperactive. Oriented x3 HEENT: Atraumatic, PERRLA, EOMI, Normocephalic Oral: No Gingival or Mucosal Lesions/ Ulcerations Neck: Supple, No JVD, Negative Carotid Bruits Lungs: Air entry equal in bilateral lung bases. No crepitation/rhonchi Cardiovascular: Regular rate, Regular Rhythm, Normal S1, Normal S2, No murmurs Abdomen: Bowel Sounds Present, Soft, Non Tender, Non-Distended : No renal angle tenderness. No suprapubic tenderness. Extremities: No edema, Capillary Refill Less than 3 Seconds Skin: No rashes, No breakdown Musculoskeletal: Tremors in both upper extremities and hands. No Tenderness to Palpation of Joints or Extremities Neurological: Cranial nerves II-XII grossly intact, Deep Tendon Reflexes 2+/4 and Symmetrical, Neuro grossly intact Psych/Mental Status: Anxious, restless and hyperactive Assessment & Plan Assessment/Plan (1) Opioid withdrawal: PLAN: This 30-year-old question element with history of asthma, chronic hepatitis C with chronically elevated transaminases is readmitted with same acute opioid withdrawal syndrome. 1. Acute opioid withdrawal syndrome: Patient is on buprenorphine based other adjunctive medications to control withdrawal. 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 Chronic hepatitis C: Monitor liver profile tomorrow a.m. ALT and AST have been elevated before 3. Chronic stable asthma: On as needed bronchodilator. 4. Chronic tobacco/cigarette smoking: On nicotine patch 5. VTE prophylaxis: Low risk. Early ambulation encouraged. Charges/Coding Visit Charges Inpatient E&M: 39582 Subs Hosp L2
--- NOTE | 2020-11-04 15:16 | CHAPLAIN ---
Type of Pastoral Visit _x__ Initial Visit ___ Follow-up Visit ___ On-call Visit ___ General Patient Visit ___ Spiritual Assessment ___ Family Conference ___ Bereavement ___ Rapid Response ___ Code Blue ___ Other (describe below) Pastoral Care Referral From _x__ Patient ___ Family ___ Nurse ___ Physician ___ Snow Blower ___ Extrusion Operator ___ Other (describe below) Sacrament/Intervention _x__ Active listening ___ Anointing ___ Hindu ___ Bereavement ___ Communion _x__ Amy exploration ___ _x__ Life review _x__ Prayer ___ Reconciliation ___ Sacrament of Sick _x__ Supportive presence ___ Wedding ___ Other (describe below) Pastoral Comments patient eager to talk about his hope for recovery and about his amy in God which was found again during last rehab at [facility]; pt gives life review and talks about how to defeat the addiction; pt has begun a plan for rehab with [facility]; pt states that he has been homeless lately and desires to have some clothes and a Bible again; pt open to further support and prayer
[2020-11-04] MEDS: cloNIDine HCl 0.1 MG Tablet PO (23:10)
[2020-11-05 05:53] VITALS: BP 107/67; PULSE 55; RESP 16; TEMP 36.5; O2SAT 100
[2020-11-05] MEDS: Buprenorphine HCl 2 MG TAB.SUBL SL ×3 (05:56→21:02)
[2020-11-05 06:44] LABS: AST(SGOT) 66 U/L (15-37); Alanine Aminotransfer ALT/SGPT 98 U/L (16-61); Albumin, Serum 2.9 g/dL (3.2-5.0); Alkaline Phosphatase 121 U/L (45-117); Bilirubin, Direct 0.09 mg/dL (0.00-0.30); Globulin 3.1 g/dL (2.2-4.2)
[2020-11-05 07:28] VITALS: O2SAT 100
[2020-11-05] MEDS: Ondansetron 8 MG Tablet PO (08:04)
[2020-11-05] MEDS: hydrOXYzine PAM 25 MG Capsule 50 MG PO ×3 (08:04→23:27)
[2020-11-05] MEDS: Methocarbamol 750 MG Tablet 1500 MG PO ×2 (08:04→15:14)
[2020-11-05] MEDS: Gabapentin 300 MG Capsule PO ×2 (08:04→19:56)
[2020-11-05] MEDS: Loperamide 2 MG Capsule PO (08:14)
[2020-11-05 11:50] VITALS: BP 110/64; PULSE 88; RESP 16; TEMP 36.6; O2SAT 99
--- NOTE | 2020-11-05 13:29 | PCM.PN.HOSP ---
Subjective Subjective Seen and examined. Patient having withdrawal symptoms although feels better than yesterday. Objective Data Objective Data Vital Signs: Vital Signs Temp Pulse Resp BP Pulse Ox 97.7 F L 55 L 16 107/67 100 11/05/20 05:53 11/05/20 05:53 11/05/20 05:53 11/05/20 05:53 11/05/20 07:28 Oxygen Delivery Method Room Air Weight: 149 lb Body Mass Index (BMI) 21.9 Intake & Output: Intake and Output for Last 24 Hours 11/03/20 11/04/20 11/05/20 23:59 23:59 23:59 Intake Total 2900 / 2900 200 / 200 Balance 2900 / 2900 200 / 200 Medical Nutrition Assessment Dietitian: Nutrition Therapy Diagnosis Start: 11/04/20 15:43 Freq: Status: Active Protocol: Document 11/04/20 15:59 HÉCTOR (Rec: 11/04/20 15:59 [facility] [id number]) Nutrition Malnutrition Evidence of Malnutrition Exists Yes Malnutrition (severe): Social/Behavioral/ Environmental Evidenced By Weight Loss (Severe),Physical Changes (Severe) Clinical Problem Chronic Disease or Condition Related Malnutrition Etiology related to opiate/substance abuse Signs/Symptoms as evidenced by 15.6% wt loss x 4 month and temporal / clavicle bone protrusion - pt reports seeing muscle and fat loss in his arms and legs. Status Active Problem Recommendation Dietitian Recommendations/Changes Will provide 8 oz ensure enlive w/ meals Will continue Regular diet w/ snacks tid as ordered. Lab / Micro Data Result Diagrams: 11/03/20 20:01 11/03/20 20:01 Labs: Laboratory Results - last 24 hr 11/05/20 05:46: Total Bilirubin 0.20, Direct Bilirubin 0.09, AST 66 H, ALT 98 H, Alkaline Phosphatase 121 H, Total Protein 6.0 L, Albumin 2.9 L, Globulin 3.1 Physical Exam Narrative General: Awake, anxious. Oriented x3 HEENT: Atraumatic, PERRLA, EOMI, Normocephalic Oral: No Gingival or Mucosal Lesions/ Ulcerations Neck: Supple, No JVD, Negative Carotid Bruits Lungs: Air entry equal in bilateral lung bases. No crepitation/rhonchi Cardiovascular: Regular rate, Regular Rhythm, Normal S1, Normal S2, No murmurs Abdomen: Bowel Sounds Present, Soft, Non Tender, Non-Distended : No renal angle tenderness. No suprapubic tenderness. Extremities: No edema, Capillary Refill Less than 3 Seconds Skin: No rashes, No breakdown Musculoskeletal: Tremors in both upper extremities and hands. No Tenderness to Palpation of Joints or Extremities Neurological: Cranial nerves II-XII grossly intact, Deep Tendon Reflexes 2+/4 and Symmetrical, Neuro grossly intact Psych/Mental Status: Anxious, and restless Assessment & Plan Assessment/Plan (1) Opioid withdrawal: PLAN: This 30-year-old question element with history of asthma, chronic hepatitis C with chronically elevated transaminases is readmitted with same acute opioid withdrawal syndrome. 1. Acute opioid withdrawal syndrome: Patient is on buprenorphine based other adjunctive medications to control withdrawal. 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 Chronic hepatitis C: ALT and AST have been elevated before. Not significant improvement in ALT and AST, seems chronic in nature. 3. Chronic stable asthma: On as needed bronchodilator. 4. Chronic tobacco/cigarette smoking: On nicotine patch 5. VTE prophylaxis: Low risk. Early ambulation encouraged. Charges/Coding Visit Charges Inpatient E&M: 16103 Subs Hosp L2
--- NOTE | 2020-11-05 14:29 | ADDICTION ---
Pt awake and oriented and willing to talk with clinician. TW informed PT that he will be going to residential treatment, [facility], tomorrow 11/06/20 at 11AM. TW set up transportation with basketball coach Terry Arreaga to transport at 11AM. PT completed residential screen during session. PT still motivated and eager to attend treatment and reported being ecstatic.
[2020-11-05 15:06] VITALS: BP 106/70; PULSE 70; RESP 16; TEMP 36.9; O2SAT 98
[2020-11-05] MEDS: Ibuprofen 600 MG Tablet PO (15:15)
--- NOTE | 2020-11-05 17:01 | CHAPLAIN ---
Addendum entered by Juan Boswell 11/05/20 17:02: accidental closure of screen while still writing note - pt has a plan to enter residential treatment with [facility] and God has put all the pieces together at the right time for me; pt welcomes the support given by director of construction and speaks openly about connecting to God and having the Bible guide him; talked about future life and what can be for him; prayer welcomed; pt appears optimistic about his opportunities Original Note: Type of Pastoral Visit ___ Initial Visit _x__ Follow-up Visit ___ On-call Visit ___ General Patient Visit ___ Spiritual Assessment ___ Family Conference ___ Bereavement ___ Rapid Response ___ Code Blue ___ Other (describe below) Pastoral Care Referral From _x__ Patient ___ Family ___ Nurse ___ Physician ___ Commercial Stripper ___ Choir Member ___ Other (describe below) Sacrament/Intervention _x__ Active listening ___ Anointing ___ Confucianism ___ Bereavement ___ Communion _x__ Amy exploration ___ ___ Life review _x__ Prayer ___ Reconciliation ___ Sacrament of Sick _x__ Supportive presence ___ Wedding ___ Other (describe below) Pastoral Comments follow up to patient as requested and gave a few hygiene items as pt also requested with permission from RN; pt has a plan in place for
[2020-11-05 20:30] VITALS: BP 109/60; PULSE 80; RESP 16; TEMP 36.8; O2SAT 96
[2020-11-05] MEDS: cloNIDine HCl 0.1 MG Tablet PO (23:27)
[2020-11-06 02:30] VITALS: BP 109/55; PULSE 87; RESP 16; TEMP 36.8; O2SAT 97
[2020-11-06] MEDS: Acetaminophen 325 MG Tablet 650 MG PO (05:48)
--- NOTE | 2020-11-06 07:22 | PCM.DC ---
Discharge Instructions Diet Discharge Diet: No restrictions Activity Discharge Activity: May Not Drive Weight Bearing Status: Weight bearing as tolerated Dressing / Incision Call your doctor if you observe: Fever of 101 or Higher, Coldness, Increased Pain, Numbness or Tingling, Change in Color, Inability to urinate, Inability to have a bowel movement, Shortness of breath, Dizziness, Fainting spells, Swelling in the ankles, Chest pain, Prolonged hiccupping, Increased palpitations (irregular heartbeat), Calf discomfort and Uncontrolled pain Follow Up Care Please Follow Up With: Katie Brannon DO When: in 1 week Test Results: Test results from this visit will be discussed in further detail at your follow-up appointment, if applicable. Discharge Plan Admission Admit Date/Time: 11/03/20 19:25 Primary Reason for Your Visit: Acute opioid withdrawal syndrome Attending Provider: Jake Bianchi Instructions Patient Instructions: ED Opioid Withdrawal Additional Instructions / Restrictions: The patient is discharged to inpatient drug facility Discharge Orders/Prescriptions Prescriptions: New nicotine 21 mg/24 hr Patch 24 Hour 21 mg transdermal DAILY Qty: 0 RF: 0 Referrals / Follow Up: BROOK BOATENG [Other] Disposition Disposition (needs filled in before D/C Order can be placed): Home, Self Care
--- NOTE | 2020-11-06 07:22 | PCM.DC.SUM ---
Providers Date of Admission: 11/03/20 Primary Care Physician: BROOK BOATENG Reason For Visit: ACUTE OPIATE WITHDRAWAL Diagnosis Discharge Diagnosis (1) Opioid withdrawal: Status: Acute Code(s): F11.23 - Opioid dependence with withdrawal Medications at Discharge Home Medications nicotine 21 mg TRANSDERMAL DAILY #0 ea 11/06/20 Hospital Course Summary of Care Provided Hospital Course: This 30-year-old question element with history of asthma, chronic hepatitis C with chronically elevated transaminases is readmitted with same acute opioid withdrawal syndrome. 1. Acute opioid withdrawal syndrome: Patient is on buprenorphine based other adjunctive medications to control withdrawal. 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 Overall, withdrawal symptoms improve and he is medically stable for discharge to inpatient drug rehab facility. 2. Chronic hepatitis C: ALT and AST have been elevated before. Not significant improvement in ALT and AST, seems chronic in nature. 3. Chronic stable asthma: On as needed bronchodilator. 4. Chronic tobacco/cigarette smoking: On nicotine patch 5. VTE prophylaxis: Low risk. Early ambulation encouraged. Discharge medication reconciliation done. Discharge follow-up instructions completed. Discharge process discussed with the patient and all questions were answered to patient's satisfaction. Total time spent, exact 35 minutes on discharge meds reconciliation, examination, coordination of care with nurses and ancillary staff, review of imaging and blood test and discussion with the patient on follow-up instructions Physical Exam Narrative Seen and examined Patient is awake, oriented. Denies delusion, hallucination. He is excited with going to inpatient drug facility for rehab General: Awake, , oriented x3 HEENT: Atraumatic, PERRLA, EOMI, Normocephalic Oral: No Gingival or Mucosal Lesions/ Ulcerations Neck: Supple, No JVD, Negative Carotid Bruits Lungs: Air entry equal in bilateral lung bases. No crepitation/rhonchi Cardiovascular: Regular rate, Regular Rhythm, Normal S1, Normal S2, No murmurs Abdomen: Bowel Sounds Present, Soft, Non Tender, Non-Distended : No renal angle tenderness. No suprapubic tenderness. Extremities: No edema, Capillary Refill Less than 3 Seconds Skin: No rashes, No breakdown Musculoskeletal: Tremors in both upper extremities and hands. No Tenderness to Palpation of Joints or Extremities Neurological: Cranial nerves II-XII grossly intact, Deep Tendon Reflexes 2+/4 and Symmetrical, Neuro grossly intact Psych/Mental Status: Appropriate Medical Records Data Medical Nutrition Assessment Dietitian: Nutrition Therapy Diagnosis Start: 11/04/20 15:43 Freq: Status: Active Protocol: Document 11/04/20 15:59 HÉCTOR (Rec: 11/04/20 15:59 HÉCTOR [id number]) Nutrition Malnutrition Evidence of Malnutrition Exists Yes Malnutrition (severe): Social/Behavioral/ Environmental Evidenced By Weight Loss (Severe),Physical Changes (Severe) Clinical Problem Chronic Disease or Condition Related Malnutrition Etiology related to opiate/substance abuse Signs/Symptoms as evidenced by 15.6% wt loss x 4 month and temporal / clavicle bone protrusion - pt reports seeing muscle and fat loss in his arms and legs. Status Active Problem Recommendation Dietitian Recommendations/Changes Will provide 8 oz ensure enlive w/ meals Will continue Regular diet w/ snacks tid as ordered. Weight / BMI Weight Weight: 149 lb Body Mass Index (BMI) 21.9 ABG / Lab / Microbiology Data Result Diagrams: 11/03/20 20:01 11/03/20 20:01 Meaningful Use Info Meaningful Use Diagnoses (Choose all that apply): None applicable Discharge Plan Admission Admit Date/Time: 11/03/20 19:25 Primary Reason for Your Visit: Acute opioid withdrawal syndrome Attending Provider: Jake Bianchi Instructions Patient Instructions: ED Opioid Withdrawal Additional Instructions / Restrictions: The patient is discharged to inpatient drug facility Discharge Orders/Prescriptions Prescriptions: New nicotine 21 mg/24 hr Patch 24 Hour 21 mg transdermal DAILY Qty: 0 RF: 0 Referrals / Follow Up: BROOK BOATENG [Other] Disposition Disposition (needs filled in before D/C Order can be placed): Home, Self Care Charges/Coding Visit Charges Inpatient E&M: 23100 Disch Hosp
[2020-11-06 07:24] VITALS: O2SAT 96
[2020-11-06 08:30] VITALS: BP 123/73; PULSE 90; RESP 16; TEMP 36.5; O2SAT 96
[2020-11-06] MEDS: Gabapentin 300 MG Capsule PO (08:57)
[2020-11-06] MEDS: Dicyclomine 10 MG Capsule 20 MG PO (08:57)
[2020-11-06] MEDS: Ondansetron 8 MG Tablet PO (08:57)
[2020-11-06] MEDS: Buprenorphine HCl 2 MG TAB.SUBL SL (08:57)
--- NOTE | 2020-11-06 10:58 | ADDICTION ---
TW checked in with PT. TW provided supportive counseling and answered questions in regards to [facility] residential treatment.
== END 2020-11-06 11:13 | disposition home or self-care (01) | DRG 773 ==
LOC: ED 19:28 → MS3 19:54
PROVIDERS: Admitting Provider Family Medicine; Emergency Provider Emergency Medicine; Visit Provider Internal Medicine
DX: F11.23 Opioid dependence with withdrawal (principal); F15.10 Other stimulant abuse, uncomplicated; B18.2 Chronic viral hepatitis C; J45.909 Unspecified asthma, uncomplicated; F17.210 Nicotine dependence, cigarettes, uncomplicated; E43 Unspecified severe protein-calorie malnutrition; Z68.21 Body mass index [BMI] 21.0-21.9, adult; Z59.0 Homelessness
CPT/HCPCS: 36415; 80053; 80076; 80307; 82077; 85025; 97802; 99284; J7120; A4216